=== PATIENT | female | born 1985 | race Two or more races ===

== ENCOUNTER 2017-04-30 13:21 | Inpatient (IN) | payer BC ==
[~2017-04-30] VITALS: Ht 152.4 cm; Wt 54.6 kg
--- NOTE | 2017-04-30 14:08 | NUR ---
RECIEVED TO ROOM VIA WHEELCHAIR FROM ADMISSIONS [ER DIRECT ADMISSION PER ORDER DR MATTA. PIV SITED TO LEFT FORARM 20 GA X 1 STICK
[2017-04-30] MEDS ORDERED: LEVAQUIN500 MG PO (14:32)
[2017-04-30] MEDS ORDERED: MUCINEX600 MG PO (14:32)
[2017-04-30] MEDS ORDERED: VENTOLIN HFA18 GM INH (14:33)
[2017-04-30 16:22] LABS: HEMATOCRIT 31.8 % (36.0-48.0); HEMOGLOBIN 9.8 g/dL (12-16); MCH 20.9 pg (26.0-34.0); MCHC 30.8 g/dL (31.0-37.0); MCV 67.9 fL (80.0-100.0); MEAN PLATELET VOLUME 9.9 fL (7.4-10.4); PLATELET COUNT 305 10x3/uL (130-400); RBC 4.68 10x6/uL (4.00-5.40); RDW 16.1 % (11.5-14.5); WBC 2.6 10x3/uL (4.8-10.8)
[2017-04-30 16:33] VITALS: BP 94/58
[2017-04-30 16:36] LABS: ALBUMIN 2.9 g/dL (3.4-5.0); ALKALINE PHOSPHATASE 69 U/L (46-116); ALT (SGPT) 15 U/L (10-68); BILIRUBIN - TOTAL 0.21 mg/dL (0.2-1.3); CALC OSMOLALITY 276 mosm/kg (275-300); CALCIUM 8.3 mg/dL (8.5-10.1); CARBON DIOXIDE 25.7 mmol/L (21.0-32.0); CHLORIDE - SERUM 103 mmol/L (98-107); CREATININE - SERUM 0.8 mg/dL (0.6-1.3); GLUCOSE 117 mg/dL (74-106); POTASSIUM - SERUM 3.6 mmol/L (3.5-5.1); PROTEIN - SERUM 7.6 g/dL (6.4-8.2); SODIUM 139 mmol/L (136-145); UREA NITROGEN 7 mg/dL (7-18); eGFR NON AFRICAN AMERICAN 87 mL/min (90-120)
[2017-04-30 17:06] LABS: LYMPHOCYTES 19 % (15-50); MONOCYTES 3 % (2-11); NEUTROPHILS 77 % (40-80); PLATELET ESTIMATE NORMAL
--- NOTE | 2017-04-30 17:30 | NUR ---
PT NOTED TO HAVE TEMP OF 101.2 NEW ORDER FOR TYLENOL GIVEN PER ORDER WILL MONITOR FOR EFFECTIVENESS. PT FAMILY AT BEDSIDE.
[2017-04-30 18:16] VITALS: BP 94/58; BMI 21.7
--- NOTE | 2017-04-30 19:00 | NUR ---
PT TEMP 99.1 FAMILY REMAINS AT BEDSIDE.
[2017-04-30 20:00] VITALS: BP 85/51
[2017-04-30 21:45] VITALS: BP 90/60
[2017-05-01] VITALS: BP 90/48
[2017-05-01 03:49] VITALS: BP 97/49
[2017-05-01 05:47] LABS: BASOPHILS 0.4 % (0-2); EOSINOPHILS 0 % (0-7); HEMATOCRIT 29.3 % (36.0-48.0); HEMOGLOBIN 9.2 g/dL (12-16); LYMPHOCYTES 20.4 % (15-50); MCH 21.2 pg (26.0-34.0); MCHC 31.4 g/dL (31.0-37.0); MCV 67.5 fL (80.0-100.0); MEAN PLATELET VOLUME 9.5 fL (7.4-10.4); MONOCYTES 1.7 % (2-11); NEUTROPHILS 77.5 % (40-80); PLATELET COUNT 293 10x3/uL (130-400); RBC 4.34 10x6/uL (4.00-5.40); RDW 16.2 % (11.5-14.5); WBC 2.4 10x3/uL (4.8-10.8)
[2017-05-01 06:00] LABS: ALBUMIN 2.5 g/dL (3.4-5.0); ALKALINE PHOSPHATASE 62 U/L (46-116); ALT (SGPT) 14 U/L (10-68); BILIRUBIN - TOTAL 0.22 mg/dL (0.2-1.3); CALC OSMOLALITY 280 mosm/kg (275-300); CALCIUM 7.8 mg/dL (8.5-10.1); CARBON DIOXIDE 24.3 mmol/L (21.0-32.0); CHLORIDE - SERUM 108 mmol/L (98-107); CREATININE - SERUM 0.8 mg/dL (0.6-1.3); GLUCOSE 108 mg/dL (74-106); POTASSIUM - SERUM 3.7 mmol/L (3.5-5.1); PROTEIN - SERUM 6.7 g/dL (6.4-8.2); SODIUM 142 mmol/L (136-145); eGFR NON AFRICAN AMERICAN 87 mL/min (90-120)
[2017-05-01 06:02] LABS: UREA NITROGEN 5 mg/dL (7-18)
--- NOTE | 2017-05-01 07:45 | NUR ---
PT ASSESSMENT COMPLETE AWAKE AND ALERT ORINETD X 3 LUNGS WITH NOTED DIMINISHED BASES AND CRACKLES NOTED TO RML BSA X 4 QUADS UP AD JOAQUÍN IS ON DAY 5 OF MENSES.
[2017-05-01 09:31] VITALS: BP 91/47
--- NOTE | 2017-05-01 11:08 | NUR ---
DR PRATT IN ROOM AT THIS [facility] SYSTEMS PROGRAMMER TO HAVE BRONCHOSCOPY AT 3PM TODAY PER DR PRATT. PT NPO ALSO NEW ORDER FOR FLUID BOLUS STARTED AT THIS TIME
[2017-05-01 12:12] LABS: BASOPHILS 0 % (0-2); EOSINOPHILS 0 % (0-7); HEMATOCRIT 29.3 % (36.0-48.0); HEMOGLOBIN 9.1 g/dL (12-16); LYMPHOCYTES 23.6 % (15-50); MCH 21.1 pg (26.0-34.0); MCHC 31.1 g/dL (31.0-37.0); MCV 67.8 fL (80.0-100.0); MEAN PLATELET VOLUME 9.2 fL (7.4-10.4); MONOCYTES 2.7 % (2-11); NEUTROPHILS 73.7 % (40-80); PLATELET COUNT 292 10x3/uL (130-400); RBC 4.32 10x6/uL (4.00-5.40); RDW 16.2 % (11.5-14.5); WBC 2.6 10x3/uL (4.8-10.8)
[2017-05-01 12:14] VITALS: BP 100/61
[2017-05-01 12:27] LABS: INR 1.31 (0.85-1.17); PROTIME 16.1 SECONDS (11.6-15.0)
[2017-05-01 12:28] LABS: APTT 33.6 SECONDS (22.8-39.4)
--- NOTE | 2017-05-01 16:00 | NUR ---
PT TO HAVE BRONCHOSCOPY IN ROOM 2240 CONSENTS SIGNED ROOM PREPPED AND PT PREOPPED.
--- NOTE | 2017-05-01 17:00 | NUR ---
PT RESTING WELL WITH NO DISTRES NOTED VOICES NEEDS FAMILY AT SIDE
--- NOTE | 2017-05-01 18:35 | NUR ---
PT HAD A LARGE AMOUNT CLEAR EMESIS WITH TYLENOL PILL VISIBLE THAT WAS JUST PREVIOUSLY ADMINISTERED. ORDER GIVEN FOR IV TYLENOL FOR TEMP AND EVS CALLED TO MOP THE ROOM.
--- NOTE | 2017-05-01 19:00 | NUR ---
PT TEMP 105, THERAPY TECH JOSIE PAGED DR JONES AND DR PRATT, GAVE PT ICE PACKS TO HELP LOWER TEMP, INCREASED FLUIDS. FAMILY WITH PATIENT, BED IN LOW POSITION, CALL LIGHT WITHIN REACH
[2017-05-01 20:00] VITALS: BP 127/87
--- NOTE | 2017-05-01 20:56 | NUR ---
PT SPIKED FEVER OF 104.9 WITH FAMILY AT SIDE HEART RATE 144 SUSTAINED NEW ORDERS OBRTAINED PER DR PRATT FOLLOWED PT GIVEN ICE PK
[2017-05-02] VITALS (9 sets, daily range): BP systolic 92–123; BP diastolic 47–74
--- NOTE | 2017-05-02 03:39 | NUR ---
ASISTED PT TO RESTROOM, PT IS ALERT, VERBALLIZED NO PAIN, UP WITH ONE PERSON ASSIST. BED IN LOW POSITION, CALL LIGHT WITHIN REACH
[2017-05-02 05:59] LABS: BASOPHILS 0 % (0-2); EOSINOPHILS 0 % (0-7); HEMATOCRIT 27.8 % (36.0-48.0); HEMOGLOBIN 8.7 g/dL (12-16); IMMATURE GRANULOCYTES 0.2 % (0-5); LYMPHOCYTES 11.7 % (15-50); MCH 21.3 pg (26.0-34.0); MCHC 31.3 g/dL (31.0-37.0); MEAN PLATELET VOLUME 9.6 fL (7.4-10.4); MONOCYTES 0.7 % (2-11); NEUTROPHILS 87.4 % (40-80); PLATELET COUNT 260 10x3/uL (130-400); RBC 4.09 10x6/uL (4.00-5.40); RDW 16.5 % (11.5-14.5)
[2017-05-02 06:05] LABS: WBC 5.7 10x3/uL (4.8-10.8)
[2017-05-02 06:19] LABS: ALBUMIN 1.9 g/dL (3.4-5.0); ALKALINE PHOSPHATASE 49 U/L (46-116); ALT (SGPT) 14 U/L (10-68); BILIRUBIN - TOTAL 0.34 mg/dL (0.2-1.3); CALC OSMOLALITY 291 mosm/kg (275-300); CARBON DIOXIDE 22.9 mmol/L (21.0-32.0); CREATININE - SERUM 0.7 mg/dL (0.6-1.3); GLUCOSE 114 mg/dL (74-106); POTASSIUM - SERUM 3.6 mmol/L (3.5-5.1); PROTEIN - SERUM 5.6 g/dL (6.4-8.2); SODIUM 148 mmol/L (136-145); UREA NITROGEN 4 mg/dL (7-18); eGFR NON AFRICAN AMERICAN > 90 mL/min (90-120)
[2017-05-02 06:21] LABS: CALCIUM 6.9 mg/dL (8.5-10.1); CHLORIDE - SERUM 116 mmol/L (98-107)
--- NOTE | 2017-05-02 07:58 | NUR ---
PT AOX4 RESP EVEN AND NONLABORED PT DENIES NEEDS AT THIS TIME IV TO RIGHT FOREARM PATENT AND INTACT AT THIS TIME SRX2 BED AT LOWEST SETTING CALL LIGHT WITHIN REACH WILL CONTINUE TO MONITOR
--- NOTE | 2017-05-02 19:29 | NUR ---
PT IS SITTING IN BED WITH UNCONTROLLABLE COUGH, FATHER IN LAW DR. DAVIS HAS ASKED FOR A COUGH SUPPRESSANT. PT C/O ABDOMINAL SORENESS DUE TO COUGH, EXPLAINED TO PT AND FAMILY THAT PT NEEDS TO COUGH UP FLEM AND CLEAR OUT LUNGS PT FATHER IN LAW THEN ASKED ABOUT COUGH EXPECTORANT. PT VERBALIZED FINE JUST SORE FROM COUGHING, NO OTHER SIGNS OF DISTRESS AT THIS TIME. CONTINUE WITH PLAN OF CARE AND MONITORING TEMP. BED IN LOW POSITION, CALL LIGHT WITHIN REACH
[2017-05-03] VITALS (8 sets, daily range): BP systolic 85–127; BP diastolic 56–79
--- NOTE | 2017-05-03 01:00 | NUR ---
IN DROPLET ISOLATION. RESTING WITH EYES CLOSED. RR EVEN U/L. NO S/S OF DISTRESS OR DISCOMFORT. CALL LIGHT IN REACH.
[2017-05-03 06:25] LABS: BASOPHILS 0 % (0-2); EOSINOPHILS 0.1 % (0-7); HEMATOCRIT 26.2 % (36.0-48.0); IMMATURE GRANULOCYTES 0.1 % (0-5); LYMPHOCYTES 11.9 % (15-50); MCH 20.8 pg (26.0-34.0); MCHC 30.5 g/dL (31.0-37.0); MCV 68.1 fL (80.0-100.0); MEAN PLATELET VOLUME 9.9 fL (7.4-10.4); MONOCYTES 1.4 % (2-11); NEUTROPHILS 86.5 % (40-80); PLATELET COUNT 262 10x3/uL (130-400); RBC 3.85 10x6/uL (4.00-5.40); RDW 16.6 % (11.5-14.5); WBC 7.3 10x3/uL (4.8-10.8)
[2017-05-03 06:46] LABS: % SATURATION 4 % (15-55); IRON 8 ug/dl (35-150); TOTAL IRON BIND CAPACITY 173 ug/dl (260-445); UNSAT IRON BIND CAPACITY 165 ug/dl (150-375)
[2017-05-03 06:55] LABS: ALBUMIN 1.9 g/dL (3.4-5.0); ALKALINE PHOSPHATASE 54 U/L (46-116); ALT (SGPT) 13 U/L (10-68); BILIRUBIN - TOTAL 0.32 mg/dL (0.2-1.3); CALC OSMOLALITY 277 mosm/kg (275-300); CALCIUM 7.5 mg/dL (8.5-10.1); CARBON DIOXIDE 24.3 mmol/L (21.0-32.0); CHLORIDE - SERUM 109 mmol/L (98-107); CREATININE - SERUM 0.7 mg/dL (0.6-1.3); FERRITIN 83 ng/mL (3-244); GLUCOSE 131 mg/dL (74-106); PROTEIN - SERUM 5.7 g/dL (6.4-8.2); SODIUM 140 mmol/L (136-145); UREA NITROGEN 3 mg/dL (7-18); eGFR NON AFRICAN AMERICAN > 90 mL/min (90-120)
[2017-05-03 07:01] LABS: POTASSIUM - SERUM 2.9 mmol/L (3.5-5.1)
--- NOTE | 2017-05-03 07:55 | NUR ---
PT AOX4 RESP EVEN AND NONLABORED PT DENIES NEEDS AT THIS TIME SRX2 BED AT LOWEST SETTING CALL LIGHT WITHIN REACH WILL CONTINUE TO MONITOR IV TO RIGHT FOREARM PATENT AND INTACT AT THIS TIME
[2017-05-03 14:08] LABS: ACID FAST SMEAR Negative (()); AFB SPECIMEN PROCESSING Concentration (())
--- NOTE | 2017-05-03 20:09 | NUR ---
REC'D SITTING UP IN CHAIR IN ROOM AWAKE AND ALERT. RESP EVEN AND UNLABORED WITH NO DISTRESS NOTED. CAN VOICE NEEDS AND WANTS. DENIES ANY PAIN OR DISCOMFORT AT THIS TIME. ASSESSMENT COMPLETED. C/L IN REACH AT BEDSIDE.
[2017-05-04] VITALS: BP 137/98
[2017-05-04 04:00] VITALS: BP 96/56
--- NOTE | 2017-05-04 04:18 | NUR ---
Patient resting quietly, eyes closed, deemed to be sleeping. IV of NS infusing @100ml/hr and Zofran infusing @4ml/hr. Continues to be on Airborne Isolation. No signs of discomfort at this time, respirations unlabored.
[2017-05-04 05:34] LABS: BASOPHILS 0 % (0-2); EOSINOPHILS 0.2 % (0-7); HEMATOCRIT 26.1 % (36.0-48.0); IMMATURE GRANULOCYTES 0.2 % (0-5); MCH 20.8 pg (26.0-34.0); MCHC 30.7 g/dL (31.0-37.0); MCV 67.8 fL (80.0-100.0); MONOCYTES 1.6 % (2-11); PLATELET COUNT 278 10x3/uL (130-400); RBC 3.85 10x6/uL (4.00-5.40); RDW 16.8 % (11.5-14.5); WBC 5.5 10x3/uL (4.8-10.8)
[2017-05-04 05:49] LABS: ALBUMIN 2.1 g/dL (3.4-5.0); ALKALINE PHOSPHATASE 60 U/L (46-116); ALT (SGPT) 12 U/L (10-68); BILIRUBIN - TOTAL 0.31 mg/dL (0.2-1.3); CALC OSMOLALITY 275 mosm/kg (275-300); CALCIUM 7.7 mg/dL (8.5-10.1); CARBON DIOXIDE 23.7 mmol/L (21.0-32.0); CHLORIDE - SERUM 108 mmol/L (98-107); CREATININE - SERUM 0.7 mg/dL (0.6-1.3); GLUCOSE 100 mg/dL (74-106); SODIUM 140 mmol/L (136-145); UREA NITROGEN 3 mg/dL (7-18); eGFR NON AFRICAN AMERICAN > 90 mL/min (90-120)
[2017-05-04 05:50] LABS: POTASSIUM - SERUM 3.5 mmol/L (3.5-5.1)
[2017-05-04 10:16] VITALS: BP 129/72
[2017-05-04 12:09] VITALS: BP 128/70
--- NOTE | 2017-05-04 14:02 | NUR ---
ATTEMPTED TO FLUSH PT IV AFTER SHOWER TO ENSURE PATENCY. PT COMPLAINED OF BURNING AND PAIN WHEN ATTEMPTED TO DO SO. BIPIN CORTES IV ACCESS NURSE, CALLED TO PLACE MIDLINE.
[2017-05-04 15:57] VITALS: BP 129/85
[2017-05-04 19:00] VITALS: BP 106/69
--- NOTE | 2017-05-04 21:55 | NUR ---
PT SEEN EARILER THIS SHIFT. NO COMPLAINTS AT PRESENT. STILL IN DROPLET ISOLATION. LEFT MIDLINE PATENT. STATES NO NAUSEA. HOPING FOR DISCHARGE SOON. CALL LIGHT IN REACH
[2017-05-05] VITALS: BP 107/63
[2017-05-05 04:00] VITALS: BP 120/77
--- NOTE | 2017-05-05 04:00 | NUR ---
PATIENT RESTING QUIETLY WITH EYES CLOSED. NO SIGNS OF DISTRESS NOTED. BED IN LOWEST POSITION, CALL LIGHT IN REACH. BED RAILS UP X'S 2.
--- NOTE | 2017-05-05 06:05 | NUR ---
PT HAS RESTED THIS SHIFT. REMAINS IN AIRBORNE ISOLATION. NO FAMILY AT BEDSIDE THIS NIGHT. CALL LIGHT IN REACH
[2017-05-05 06:20] LABS: BASOPHILS 0.2 % (0-2); EOSINOPHILS 0.4 % (0-7); HEMATOCRIT 28.9 % (36.0-48.0); HEMOGLOBIN 8.9 g/dL (12-16); IMMATURE GRANULOCYTES 0.4 % (0-5); LYMPHOCYTES 14.7 % (15-50); MCH 20.7 pg (26.0-34.0); MCHC 30.8 g/dL (31.0-37.0); MCV 67.4 fL (80.0-100.0); MEAN PLATELET VOLUME 9.6 fL (7.4-10.4); MONOCYTES 2.8 % (2-11); NEUTROPHILS 81.5 % (40-80); PLATELET COUNT 291 10x3/uL (130-400); RBC 4.29 10x6/uL (4.00-5.40); RDW 16.7 % (11.5-14.5); WBC 4.7 10x3/uL (4.8-10.8)
[2017-05-05 06:38] LABS: ALBUMIN 2.2 g/dL (3.4-5.0); ALKALINE PHOSPHATASE 64 U/L (46-116); ALT (SGPT) 14 U/L (10-68); BILIRUBIN - TOTAL 0.36 mg/dL (0.2-1.3); CALC OSMOLALITY 279 mosm/kg (275-300); CALCIUM 7.5 mg/dL (8.5-10.1); CARBON DIOXIDE 23.2 mmol/L (21.0-32.0); CHLORIDE - SERUM 107 mmol/L (98-107); CREATININE - SERUM 0.7 mg/dL (0.6-1.3); GLUCOSE 102 mg/dL (74-106); POTASSIUM - SERUM 3.2 mmol/L (3.5-5.1); PROTEIN - SERUM 6.3 g/dL (6.4-8.2); SODIUM 142 mmol/L (136-145); eGFR NON AFRICAN AMERICAN > 90 mL/min (90-120)
[2017-05-05 06:39] LABS: UREA NITROGEN 5 mg/dL (7-18)
[2017-05-05 08:24] VITALS: BP 118/63
[2017-05-05 09:15] LABS: FOLATE (FOLIC ACID) - SERUM 13.3 ng/mL (>3.0)
--- NOTE | 2017-05-05 12:30 | NUR ---
RESTING QUIETLY WITH FAMILY AT BEDSIDE. NO NEEDS AT PRESENT. BED LOW CL IN REACH.
[2017-05-05 12:40] VITALS: BP 120/63
[2017-05-05 14:00] VITALS: Ht 152.4 cm; Wt 54.6 kg
[2017-05-05 16:39] VITALS: BP 100/70
[2017-05-05 19:00] VITALS: BP 118/31
--- NOTE | 2017-05-05 19:50 | NUR ---
FAMILY/ FRIENDS VISIT.
--- NOTE | 2017-05-06 03:46 | NUR ---
REST QUIETLY IN BED, EYE CLOSE, BED LOW, CALL LIGHT WITHIN REACH.
[2017-05-06 04:00] VITALS: BP 111/75
[2017-05-06 08:21] VITALS: BP 117/71
--- NOTE | 2017-05-06 09:51 | NUR ---
Patient Name: EDMUND DAVIS Admission Status: Elective Accout number: [id number] Admission Date: 04-30-2017 : 1985 Admission Diagnosis:LOBAR PNEUMONIA, UNSPECIFIED ORGANISM Attending: MANOJ Current LOS: 6 Anticipated DC Date: 05-08-2017 Planned Disposition: Home Primary Insurance: [employer] PPO Discharge Planning Comments: CM MET WITH PATIENT REGARDING D/C NEEDS AND PLANS. PATIENT STATED SHE LIVES WITH HER SPOUSE (RUSSELL) AND HE WILL DRIVE HER HOME AT DISCHARGE. PATIENT HAS 3 STEPS TO ENTER HOME AND 18 STAIRS W/RAILING INSIDE. PATIENT IS INDEPENDENT WITH HER CARE AND HAS NO DME AT HOME. PATIENTS PCP IS DR. MATTA AND PHARMACY IS [facility] [address]. PATIENT DID NOT WANT HOME HEALTH. CM WILL CONTINUE TO FOLLOW PATIENT WITH D/C NEEDS AND PLANS. PCP DR. PAXTON [facility] [address] (PHARMACY) [phone] RUSSELL (SPOUSE) [phone] OR [phone] Sleeve Setter Safety Stitch: Jenny Feliz Is the patient Alert and Oriented? Yes 0 * How many steps to enter\exit or inside your home? 18 W/RAIL 0 * PCP DR. MATTA 0 * [facility] [address] [facility] * Preadmission Environment Home with Family 0 * ADLs Independent 0 * Equipment None 0 * List name and contact numbers for known caregivers / representatives who currently or will assist patient after discharge: RUSSELL (SPOUSE) [phone] OR [phone] 0 * Community resources currently utilized None 0 * Additional services required to return to the preadmission environment? Yes 0 * Can the patient safely return to the preadmission environment? Yes 0 * Has this patient been hospitalized within the prior 30 days at any hospital? No 0 Grand Total: 0
[2017-05-06 10:48] LABS: CREATININE - SERUM 0.6 mg/dL (0.6-1.3)
[2017-05-06 11:18] LABS: FUNGUS STAIN Final report (())
[2017-05-06 12:37] VITALS: BP 102/60
--- NOTE | 2017-05-06 13:20 | NUR ---
RESPIRATIONS EVEN AND NON LABORED. DENIES NEEDS AT PRESENT TIME. CALL LIGHT IN REACH, WILL CONTINUE WITH PLAN OF CARE.
[2017-05-06 15:54] VITALS: BP 104/72
[2017-05-06 16:13] LABS: LEGIONELLA ANTIGEN - URINE Negative (Negative)
[2017-05-06 19:00] VITALS: BP 175/65
[2017-05-06 19:49] LABS: BASOPHILS 0.2 % (0-2); EOSINOPHILS 1.6 % (0-7); HEMATOCRIT 28.2 % (36.0-48.0); HEMOGLOBIN 8.9 g/dL (12-16); LYMPHOCYTES 13.5 % (15-50); MCH 21.1 pg (26.0-34.0); MCHC 31.6 g/dL (31.0-37.0); MEAN PLATELET VOLUME 9.3 fL (7.4-10.4); MONOCYTES 3.7 % (2-11); PLATELET COUNT 301 10x3/uL (130-400); RBC 4.21 10x6/uL (4.00-5.40); RDW 16.7 % (11.5-14.5); WBC 4.9 10x3/uL (4.8-10.8)
[2017-05-06 20:11] LABS: ALBUMIN 2.4 g/dL (3.4-5.0); ALKALINE PHOSPHATASE 66 U/L (46-116); ALT (SGPT) 14 U/L (10-68); CALC OSMOLALITY 277 mosm/kg (275-300); CALCIUM 7.9 mg/dL (8.5-10.1); CARBON DIOXIDE 26.8 mmol/L (21.0-32.0); CHLORIDE - SERUM 104 mmol/L (98-107); CREATININE - SERUM 0.7 mg/dL (0.6-1.3); GLUCOSE 100 mg/dL (74-106); PROTEIN - SERUM 6.4 g/dL (6.4-8.2); SODIUM 141 mmol/L (136-145); UREA NITROGEN 4 mg/dL (7-18); eGFR NON AFRICAN AMERICAN > 90 mL/min (90-120)
[2017-05-06 20:14] LABS: POTASSIUM - SERUM 3.3 mmol/L (3.5-5.1)
--- NOTE | 2017-05-06 23:11 | NUR ---
REC'D SITTING UP IN BED. ALERT AND ORIENTED X4. DENIED PAIN AT THIS TIME. IS SOB AND VOMITING. MORTGAGE BANKER REPORTED TEMP OF 101.6, AND 30 MIN LATER I CHECKED AND IT HAD CLIMBED TO 102.9. GAVE RECTAL SUPP OF TYLENOL, AROUND 1999. RECHECKED TEMP AND IS NOW AT 99.1. WILL CONT TO MONITOR. VOMITING HAS STOPPED AND WAS ABLE TO KEEP WATER AND A POPCSILE DOWN. DENIED FURTHER NEEDS AT THIS TIME. INSTRUCTED TO CALL IF NEEDED ANYTHING. VERBALIZED UNDERSTANDING. FAMILY IS AT BEDSIDE. ALSO A DR. DAVIS CALLED AND WAS WANTING TO SPEAK WITH DR. RODRIGUEZ. CALLED VINAYAK GONZALEZ AND INSTRUCTED ME TO CALL DR. RODRIGUEZ AND LET IT BE UP TO HIS DISCRETION. CALLED ME BACK AND STATED "PLACE NUMBER ON THE CHART AND I WILL CALL HIM TOMORROW WHEN I GET IN, IM NOT CALLING HIM EHSAN". THAT WAS AROUND 2100.
[2017-05-07 04:00] VITALS: BP 104/65
[2017-05-07 05:53] LABS: BASOPHILS 0.3 % (0-2); EOSINOPHILS 0.6 % (0-7); HEMATOCRIT 25.3 % (36.0-48.0); HEMOGLOBIN 7.9 g/dL (12-16); IMMATURE GRANULOCYTES 0.6 % (0-5); LYMPHOCYTES 16.9 % (15-50); MCH 20.7 pg (26.0-34.0); MCHC 31.2 g/dL (31.0-37.0); MCV 66.2 fL (80.0-100.0); MEAN PLATELET VOLUME 9.5 fL (7.4-10.4); NEUTROPHILS 74.6 % (40-80); PLATELET COUNT 265 10x3/uL (130-400); RBC 3.82 10x6/uL (4.00-5.40); RDW 16.6 % (11.5-14.5)
[2017-05-07 06:14] LABS: WBC 3.1 10x3/uL (4.8-10.8)
[2017-05-07 06:39] LABS: ALBUMIN 1.9 g/dL (3.4-5.0); ALKALINE PHOSPHATASE 56 U/L (46-116); ALT (SGPT) 13 U/L (10-68); BILIRUBIN - TOTAL 0.33 mg/dL (0.2-1.3); CALC OSMOLALITY 276 mosm/kg (275-300); CALCIUM 7.3 mg/dL (8.5-10.1); CARBON DIOXIDE 26.4 mmol/L (21.0-32.0); CHLORIDE - SERUM 104 mmol/L (98-107); CREATININE - SERUM 0.6 mg/dL (0.6-1.3); GLUCOSE 110 mg/dL (74-106); MAGNESIUM - SERUM 1.9 mg/dL (1.8-2.4); PHOSPHOROUS 3.8 mg/dL (2.5-4.9); PROTEIN - SERUM 5.7 g/dL (6.4-8.2); SODIUM 140 mmol/L (136-145); UREA NITROGEN 5 mg/dL (7-18); eGFR NON AFRICAN AMERICAN > 90 mL/min (90-120)
[2017-05-07 07:59] VITALS: BP 114/68
--- NOTE | 2017-05-07 10:48 | NUR ---
PT SEEN EARILER THIS AM. NO COMPLAINTS OF PAIN OR NAUSEA AT PRESENT WHEN ASSESSED. DOES HAVE A COUGH OCCASIONAL THAT PT STATES MAKES HER NAUSEAETED. NO FEVER AT PRESENT. REMAINS IN AIRBORNE DROPLET. CALL LIGHT IN REACH
[2017-05-07 12:21] VITALS: BP 113/75
--- NOTE | 2017-05-07 13:21 | NUR ---
TEMP AT 1210 101.8. TYLENOL 650MG PO GIVEN. TEMP NOW 102. RESTING QUIETLY
[2017-05-07 14:21] LABS: ANA REFLEX - ANTICHROMATIN ABS <0.2 AI (0.0-0.9); ANA REFLEX - CENTROMERE B ABS <0.2 AI (0.0-0.9); ANA REFLEX - DBL STRANDED DNA 1 IU/mL (0-9); ANA REFLEX - DIRECT Positive (Negative); ANA REFLEX - JO-1 AB 0.9 AI (0.0-0.9); ANA REFLEX - RNP ANTIBODIES 0.7 AI (0.0-0.9); ANA REFLEX - SCL-70 <0.2 AI (0.0-0.9); ANA REFLEX - SJOGRENS AB SSA >8.0 AI (0.0-0.9); ANA REFLEX - SJOGRENS AB SSB <0.2 AI (0.0-0.9); ANA REFLEX - SMITH AB 0.5 AI (0.0-0.9)
[2017-05-07 15:21] LABS: CRYPTOCOCCUS AG - SERUM Negative (Negative)
--- NOTE | 2017-05-07 15:24 | NUR ---
NUTRITION MONITORING & EVAL CHART REVIEWED. CALORIE COUNT TO START. ADDED ENSURE TO VEGETARIAN FULL LIQUID DIET. RD FOLLOWING
--- NOTE | 2017-05-07 15:43 | NUR ---
PT TEMP TAKEN AT 1445 AND WAS 99.5 ORALLY. STATES SHE FEELS BETTER
[2017-05-07 15:57] VITALS: BP 104/68
--- NOTE | 2017-05-07 20:00 | NUR ---
ASSISTED PATIENT TO THE RESTROOM AND BACK TO BED. PATIENT DENIES OTHER NEEDS AT THIS TIME. BED IN LOWEST POSITION AND CALL LIGHT WITHIN REACH. ENCOURAGED THE PATIENT TO CALL IF SHE HAS FURTHER NEEDS.
[2017-05-07 22:49] VITALS: BP 132/72
[2017-05-08] VITALS (19 sets, daily range): BP systolic 79–119; BP diastolic 53–89
[2017-05-08 07:16] LABS: BASOPHILS 0 % (0-2); HEMATOCRIT 24.3 % (36.0-48.0); HEMOGLOBIN 7.8 g/dL (12-16); IMMATURE GRANULOCYTES 0.7 % (0-5); LYMPHOCYTES 27.8 % (15-50); MCHC 32.1 g/dL (31.0-37.0); MCV 65.5 fL (80.0-100.0); MEAN PLATELET VOLUME 9.3 fL (7.4-10.4); MONOCYTES 5.2 % (2-11); NEUTROPHILS 65.3 % (40-80); PLATELET COUNT 297 10x3/uL (130-400); RBC 3.71 10x6/uL (4.00-5.40); RDW 16.2 % (11.5-14.5); WBC 3.1 10x3/uL (4.8-10.8)
[2017-05-08 07:45] LABS: ALBUMIN 2.1 g/dL (3.4-5.0); ALKALINE PHOSPHATASE 57 U/L (46-116); ALT (SGPT) 13 U/L (10-68); BILIRUBIN - TOTAL 0.33 mg/dL (0.2-1.3); CALC OSMOLALITY 273 mosm/kg (275-300); CALCIUM 7.8 mg/dL (8.5-10.1); CARBON DIOXIDE 24.8 mmol/L (21.0-32.0); CHLORIDE - SERUM 104 mmol/L (98-107); CREATININE - SERUM 0.6 mg/dL (0.6-1.3); GLUCOSE 117 mg/dL (74-106); LDH 311 U/L (81-234); MAGNESIUM - SERUM 1.8 mg/dL (1.8-2.4); PHOSPHOROUS 4.2 mg/dL (2.5-4.9); PROTEIN - SERUM 6.3 g/dL (6.4-8.2); SODIUM 138 mmol/L (136-145); UREA NITROGEN 5 mg/dL (7-18); eGFR NON AFRICAN AMERICAN > 90 mL/min (90-120)
[2017-05-08 07:48] LABS: POTASSIUM - SERUM 2.5 mmol/L (3.5-5.1)
[2017-05-08 07:53] LABS: COMPLEMENT C4 17.5 mg/dL (17.4-52.2)
--- NOTE | 2017-05-08 08:19 | NUR ---
PT SEEN AND ASSESSED. NO PAIN OR VOMITING LAST SHIFT. NO FEVER EITHER. UP IN ROOM. STATES SHE FEELS GOOD THIS AM. CALL LIGHT IN REACH
[2017-05-08 14:21] LABS: HISTOPLASMA GAL MANNAN AG SER 0.16 ng/mL (0.00-0.49)
--- NOTE | 2017-05-08 15:05 | NUR ---
PT RESTING QUIETLY WITHOUT NAUSEA OR COUGHING IN BETWEEN TAKING VITAL SIGNS FOR BLOOD TRANSFUSION. TOLERATING WITHOUT SOB OR ITCHING. CALL LIGHT IN REACH
--- NOTE | 2017-05-08 22:01 | NUR ---
BEFORE ADMINISTERING MEDICATIONS PATIENT DENIED NAUSEA. PATIENT ATTEMPTED TO SWALLOW K-DUR TAB MULTIPLE TIMES BUT KEPT GAGGING. PATIENT STATED IF I SWALLOW IT I WILL THROW IT UP. TOLD HER NOT TO KEEP TRYING. CALLED PHARMACY SPOKE WITH FRANCISCO, ASKED HIM TO CHANGE IT TO 2- 10MEQ CAPSULES. WHEN I CAME BACK TO THE ROOM, I WASTED THE 20MEQ K-DUR TAB IN THE SHARPS CONTAINER, PATIENT STATED SHE FEELS SICK. TOLD PATIENT TO WAIT ON THE POTASSIUM 40MEQ LIQUID THAT IS ALREADY MIXED IN A CUP OF APPLE JUICE UNTIL SHE FEELS BETTER PATIENT AGREED THEN STARTED TO VOMIT IN A EMESIS BAG, GAVE PATIENT A COLD WET WASH CLOTH.
--- NOTE | 2017-05-08 23:30 | NUR ---
PATIENT STATED SHE STILL FEELS NAUSEOUS.
[2017-05-09] VITALS: BP 107/63
--- NOTE | 2017-05-09 00:06 | NUR ---
RESTING QUIETLY WITH EYES CLOSED
[2017-05-09 04:00] VITALS: BP 121/67
[2017-05-09 07:09] LABS: BASOPHILS 0 % (0-2); EOSINOPHILS 2.6 % (0-7); HEMATOCRIT 33.3 % (36.0-48.0); HEMOGLOBIN 10.9 g/dL (12-16); IMMATURE GRANULOCYTES 0.7 % (0-5); LYMPHOCYTES 25.2 % (15-50); MCH 22.5 pg (26.0-34.0); MCHC 32.7 g/dL (31.0-37.0); MCV 68.8 fL (80.0-100.0); MEAN PLATELET VOLUME 9.3 fL (7.4-10.4); MONOCYTES 3.7 % (2-11); NEUTROPHILS 67.8 % (40-80); PLATELET COUNT 271 10x3/uL (130-400); RBC 4.84 10x6/uL (4.00-5.40); RDW 18.1 % (11.5-14.5); WBC 2.7 10x3/uL (4.8-10.8)
[2017-05-09 07:25] LABS: ALBUMIN 2.2 g/dL (3.4-5.0); ALKALINE PHOSPHATASE 70 U/L (46-116); ALT (SGPT) 14 U/L (10-68); BILIRUBIN - TOTAL 0.46 mg/dL (0.2-1.3); C-REACTIVE PROTEIN 2.3 mg/dL (0.0-0.9); CALC OSMOLALITY 263 mosm/kg (275-300); CALCIUM 7.8 mg/dL (8.5-10.1); CARBON DIOXIDE 25.2 mmol/L (21.0-32.0); CHLORIDE - SERUM 103 mmol/L (98-107); CREATININE - SERUM 0.7 mg/dL (0.6-1.3); GLUCOSE 105 mg/dL (74-106); PROTEIN - SERUM 6.6 g/dL (6.4-8.2); SODIUM 132 mmol/L (136-145); UREA NITROGEN 9 mg/dL (7-18); eGFR NON AFRICAN AMERICAN > 90 mL/min (90-120)
[2017-05-09 08:13] LABS: ERYTHROCYTE SEDIMENTATION RATE 37 mm/hr (0-20)
[2017-05-09 08:15] LABS: IMMUNOGLOBULIN E 58 IU/mL (0-100)
--- NOTE | 2017-05-09 08:15 | NUR ---
PT RESTING IN BED WITH EYES OPEN CALL LIGHT IN REACH NO PROBLEMS WILL MONITER
[2017-05-09 08:42] VITALS: BP 95/54
--- NOTE | 2017-05-09 11:00 | NUR ---
PROVIDED PT WITH FRESH ICE WATER AT THIS TIME. RESPIRATIONS EVEN AND NON LABORED. CALL LIGHT IN REACH, WILL CONTINUE WITH PLAN OF CARE.
--- NOTE | 2017-05-09 11:00 | NUR ---
Nutrition Follow Up: Calorie Count: Breakfast 05/08/17:175 kcal6.5 g protein Lunch 05/08/17: 0 kcal 0 g protein Dinner05/08/17:Not recorded Breakfast 05/09/17:40 kcal1.5 g protein Total Kcal and Protein in 24 hours: 215 kcal8 g protein Pt is not meeting est nutritional needs with current po intake. Rec consider an appetite stimulant. Will continue to provide selective menus and honor food preferences. RD following.
[2017-05-09 12:19] VITALS: BP 104/47
[2017-05-09 13:11] LABS: BASOS 0 % (()); CD4:8 - % CD4 POS. LYMPH 48.7 % (30.8-58.5); CD4:8 - ABS CD8 SUPPRESSOR 200 /uL (109-897); CD4:8 - ABSOLUTE CD4 HELPER 390 /uL (359-1519); CD4:8 - CD4/CD8 RATIO 1.95 (0.92-3.72); EOS 1 % (()); HEMATOCRIT 24.7 % (34.0-46.6); HEMOGLOBIN 7.5 g/dL (11.1-15.9); LYMPHS 28 % (()); LYMPHS (ABSOLUTE) 0.8 x10E3/uL (0.7-3.1); MCH 20.1 pg (26.6-33.0); MCHC 30.4 g/dL (31.5-35.7); MCV 66 fL (79-97); MONOCYTES 4 % (()); MONOCYTES (ABSOLUTE) 0.1 x10E3/uL (0.1-0.9); NEUTROPHILS 66 % (()); NEUTROPHILS (ABSOLUTE) 1.9 x10E3/uL (1.4-7.0); PLATELETS 355 x10E3/uL (150-379); RBC 3.74 x10E6/uL (3.77-5.28); RDW 17.2 % (12.3-15.4); WBC 2.9 x10E3/uL (3.4-10.8)
[2017-05-09 16:28] VITALS: BP 108/74
--- NOTE | 2017-05-09 17:35 | NUR ---
PT RESTING IN BED WITH EYES OPEN CALL LIGHT IN REACH WILL MONITER
--- NOTE | 2017-05-09 19:42 | NUR ---
PATIENT RESTING IN BED AND DENIES NEEDS AT THIS TIME. BED IN LOWEST POSITION AND CALL LIGHT WITHIN REACH. ENCOURAGED THE PATIENT TO CALL IF SHE HAS NEEDS.
[2017-05-09 20:00] VITALS: BP 105/70; BP 117/55
--- NOTE | 2017-05-09 21:23 | NUR ---
101.4 TEMP, ADMINISTERED TYLENOL
[2017-05-10] VITALS: BP 96/68
[2017-05-10 04:00] VITALS: BP 94/68
[2017-05-10 06:18] LABS: BASOPHILS 0 % (0-2); EOSINOPHILS 0.7 % (0-7); HEMATOCRIT 33.6 % (36.0-48.0); HEMOGLOBIN 10.7 g/dL (12-16); IMMATURE GRANULOCYTES 0.7 % (0-5); LYMPHOCYTES 29.5 % (15-50); MCH 22.1 pg (26.0-34.0); MCHC 31.8 g/dL (31.0-37.0); MCV 69.4 fL (80.0-100.0); MEAN PLATELET VOLUME 9.3 fL (7.4-10.4); NEUTROPHILS 64.1 % (40-80); PLATELET COUNT 291 10x3/uL (130-400); RBC 4.84 10x6/uL (4.00-5.40); RDW 18.5 % (11.5-14.5); WBC 2.8 10x3/uL (4.8-10.8)
[2017-05-10 06:45] LABS: ALBUMIN 2.2 g/dL (3.4-5.0); ALKALINE PHOSPHATASE 69 U/L (46-116); ALT (SGPT) 14 U/L (10-68); CALC OSMOLALITY 273 mosm/kg (275-300); CARBON DIOXIDE 25.7 mmol/L (21.0-32.0); CHLORIDE - SERUM 104 mmol/L (98-107); CREATININE - SERUM 0.7 mg/dL (0.6-1.3); GLUCOSE 106 mg/dL (74-106); POTASSIUM - SERUM 3.1 mmol/L (3.5-5.1); PROTEIN - SERUM 6.3 g/dL (6.4-8.2); SODIUM 138 mmol/L (136-145); UREA NITROGEN 8 mg/dL (7-18); eGFR NON AFRICAN AMERICAN > 90 mL/min (90-120)
--- NOTE | 2017-05-10 07:00 | NUR ---
PT REC'D FROM BIPIN WALKER. RESTING IN BED WATCHING TV. AAOX4. NO COMPLAINTS OF PAIN. LUNG SOUNDS DIMINISHED TO BILAT LL, OTHERWISE CLEAR TO OTHER LOBES. REGULAR HEART RATE AND RHYTHM. DRESSING TO MIDLINE IN L UPPER ARM CDI. PIV TO L HAND FREE OF REDNESS AND SWELLING. NO COUGH PRESENT AT THIS TIME. PT DISCONNECTED FROM IV LINES PER REQUEST TO SHOWER. IV SITES WRAPPED AND FRESH TOWELS PROVIDED. BED LOW, CALL LIGHT IN REACH, DENIES NEEDS. CPOC.
--- NOTE | 2017-05-10 08:50 | NUR ---
MORNING MEDS PASSED AT THIS TIME. REFUSED PO POTASSIUM CAPSULES. STATES SHE JUST THROWS THEM BACK UP IMMEDIATELY. WILL ATTEMPT TO ADMINSISTER LIQUID PO POTASSIUM. IV TUBING CHANGED. COMPLETE LINEN CHANGE PROVIDED WELL. RECONNECTED TO IV TUBING. BED LOW, CALL LIGHT IN REACH, DENIES NEEDS. CPOC.
--- NOTE | 2017-05-10 10:25 | NUR ---
PT IN BED, GETTING A UPDRAFT, PT DENIES ANY NEEDS AT THIS TIME. RESP EVEN AND UNLABORED, CALL LIGHT IN REACH, NAD NOTED, WILL CONTINUE TO MONITOR.
--- NOTE | 2017-05-10 10:30 | NUR ---
LIQUID PO KCL ADMINISTERED DUE TO LOW K AND PT REFUSAL TO TAKE PO CAPSULE K. WILL ENTER REDRAW ONCE PT HAS FINISHED MEDICATION.
[2017-05-10 12:31] VITALS: BP 100/62
--- NOTE | 2017-05-10 14:11 | NUR ---
RESTING IN BED WATCHING TV. NO COMPLAINTS AND DENIES NEEDS. BED LOW, CALL LIGHT IN REACH, DENIES NEEDS. CPOC.
--- NOTE | 2017-05-10 15:10 | NUR ---
SCHEDULED MEDICATION ADMINISTERED AT THIS TIME. FAMILY AND FRIENDS AT BEDSIDE. UPDATE PROVIDED AND QUESTIONS ANSWERED. BED LOW, CALL LIGHT IN REACH, DENIES NEEDS. CPOC.
[2017-05-10 16:33] VITALS: BP 107/48
--- NOTE | 2017-05-10 18:25 | NUR ---
PT STATED, "I FEEL LIKE I HAVE FEVER. CAN YOU CHECK?" CURRENT ORAL TEMP 101.3. PRN MORTIN ADMINISTERED. WILL REASSESS.
[2017-05-10 20:00] VITALS: BP 109/65
[2017-05-11] VITALS: BP 104/60
--- NOTE | 2017-05-11 02:00 | NUR ---
PT IN BED WITH NO DISTRESS. RESPIRATIONS EVEN AND UNLABORED. SIDE RAILS X 2. BED IS LOW. CALL LIGHT IN REACH.
[2017-05-11 04:00] VITALS: BP 113/73
[2017-05-11 05:57] LABS: BASOPHILS 0 % (0-2); EOSINOPHILS 1.5 % (0-7); HEMATOCRIT 35.6 % (36.0-48.0); HEMOGLOBIN 11.8 g/dL (12-16); IMMATURE GRANULOCYTES 0.9 % (0-5); MCH 23.3 pg (26.0-34.0); MCHC 33.1 g/dL (31.0-37.0); MCV 70.2 fL (80.0-100.0); MONOCYTES 3.7 % (2-11); NEUTROPHILS 75.9 % (40-80); PLATELET COUNT 277 10x3/uL (130-400); RBC 5.07 10x6/uL (4.00-5.40); RDW 18.9 % (11.5-14.5); WBC 3.2 10x3/uL (4.8-10.8)
[2017-05-11 06:11] LABS: ALBUMIN 2.3 g/dL (3.4-5.0); ALKALINE PHOSPHATASE 76 U/L (46-116); ALT (SGPT) 15 U/L (10-68); BILIRUBIN - TOTAL 0.48 mg/dL (0.2-1.3); CALC OSMOLALITY 275 mosm/kg (275-300); CALCIUM 7.8 mg/dL (8.5-10.1); CARBON DIOXIDE 26.5 mmol/L (21.0-32.0); CHLORIDE - SERUM 105 mmol/L (98-107); CREATININE - SERUM 0.7 mg/dL (0.6-1.3); GLUCOSE 105 mg/dL (74-106); MAGNESIUM - SERUM 2.1 mg/dL (1.8-2.4); PHOSPHOROUS 4.3 mg/dL (2.5-4.9); POTASSIUM - SERUM 3.3 mmol/L (3.5-5.1); PROTEIN - SERUM 6.8 g/dL (6.4-8.2); SODIUM 139 mmol/L (136-145); UREA NITROGEN 8 mg/dL (7-18); eGFR NON AFRICAN AMERICAN > 90 mL/min (90-120)
--- NOTE | 2017-05-11 07:40 | NUR ---
PATIENT RESTING QUIETLY WITH HER EYES CLOSED. NO S/S OF DISTRESS NOTED. PATIENT'S CALL LIGHT IS WITHIN REACH. WILL MONITOR PATIENT.
--- NOTE | 2017-05-11 08:58 | NUR ---
CALORIE COUNT 05/09/17 KCALGM PROTEIN BREAKFASTNOT RECORDED [id number] FOLLOWING
--- NOTE | 2017-05-11 09:01 | NUR ---
CALORIE COUNT05/10/17 KCALGM PROTEIN [id number] FOLLOWING
[2017-05-11 09:13] VITALS: BP 104/70
[2017-05-11 12:11] LABS: CRYPTOCOCCUS AG - SERUM Negative (Negative)
--- NOTE | 2017-05-11 12:49 | NUR ---
PATIENT RESTING IN THE BED. SCHEDULED AMBISOME IVPB STARTED. PATIENT'S [id number] AT HER BEDSIDE. PATIENT DENIES ANY NEEDS AT PRESENT TIME. CALL LIGHT IN PATIENT'S REACH. WILL MONITOR.
[2017-05-11 13:03] VITALS: BP 112/65
[2017-05-11 13:12] LABS: HAPTOGLOBIN 341 mg/dL (34-200); IMMUNOGLOBULIN A 324 mg/dL (87-352); IMMUNOGLOBULIN G 1345 mg/dL (700-1600); IMMUNOGLOBULIN M 114 mg/dL (26-217)
[2017-05-11 14:14] LABS: FUNGUS MYCOLOGY CULTURE Preliminary report (())
[2017-05-11 20:00] VITALS: BP 106/65
[2017-05-11 22:06] LABS: ERYTHROCYTE SEDIMENTATION RATE 29 mm/hr (0-20)
[2017-05-11 22:07] LABS: IMMUNOGLOBULIN D 1.79 mg/dL (<14.11)
[2017-05-12] VITALS: BP 83/51
[2017-05-12 04:03] VITALS: BP 98/56
[2017-05-12 05:51] LABS: HEMATOCRIT 32.8 % (36.0-48.0); HEMOGLOBIN 10.4 g/dL (12-16); MCH 22.3 pg (26.0-34.0); MCHC 31.7 g/dL (31.0-37.0); MCV 70.4 fL (80.0-100.0); MEAN PLATELET VOLUME 9.3 fL (7.4-10.4); PLATELET COUNT 260 10x3/uL (130-400); RBC 4.66 10x6/uL (4.00-5.40); RDW 18.9 % (11.5-14.5); WBC 2.7 10x3/uL (4.8-10.8)
[2017-05-12 06:11] LABS: ALBUMIN 2.1 g/dL (3.4-5.0); ALKALINE PHOSPHATASE 71 U/L (46-116); ALT (SGPT) 13 U/L (10-68); CALC OSMOLALITY 275 mosm/kg (275-300); CALCIUM 7.7 mg/dL (8.5-10.1); CARBON DIOXIDE 25.5 mmol/L (21.0-32.0); CHLORIDE - SERUM 105 mmol/L (98-107); CREATININE - SERUM 0.6 mg/dL (0.6-1.3); GLUCOSE 106 mg/dL (74-106); MAGNESIUM - SERUM 2.2 mg/dL (1.8-2.4); PHOSPHOROUS 4.3 mg/dL (2.5-4.9); PROTEIN - SERUM 6.4 g/dL (6.4-8.2); SODIUM 139 mmol/L (136-145); UREA NITROGEN 7 mg/dL (7-18); eGFR NON AFRICAN AMERICAN > 90 mL/min (90-120)
--- NOTE | 2017-05-12 07:22 | NUR ---
PATIENT RESTING ON HER BACK. EYES ARE CLOSED. RESPIRATIONS ARE EVEN AND UNLABORED. CALL LIGHT IN PATIENT'S REACH. WILL MONITOR.
[2017-05-12 07:34] LABS: HYPOCHROMASIA OCC; LYMPHOCYTES 21 % (15-50); MONOCYTES 2 % (2-11); NEUTROPHILS 76 % (40-80); PLATELET ESTIMATE NORMAL; ROULEAUX 1+
[2017-05-12 08:33] VITALS: BP 112/63
[2017-05-12 09:02] LABS: INR 1.24 (0.85-1.17); PROTIME 15.5 SECONDS (11.6-15.0)
[2017-05-12 09:03] LABS: APTT 36.3 SECONDS (22.8-39.4)
--- NOTE | 2017-05-12 10:16 | NUR ---
PATIENT RESTING IN THE BED. FAMILY IN THE ROOM. TEMP 100.3. PRN TYLENOL GIVEN TO PATIENT. PATIENT DENIES ANY FURTHER NEEDS AT PRESENT TIME. CALL LIGHT IN PATIENT'S REACH. WILL MONITOR.
[2017-05-12 10:18] LABS: FUNGUS CULTURE RESULT 1 Candida albicans (())
[2017-05-12 13:00] VITALS: BP 89/40
[2017-05-12 16:14] VITALS: BP 94/57
[2017-05-12 17:11] LABS: ANCA - ANTIMYELOPEROXIDASE <9.0 U/mL (0.0-9.0); ANCA - ANTIPROTEINASE 3 <3.5 U/mL (0.0-3.5); ANCA - ATYPICAL <1:20 titer (Neg:<1:20); ANCA - CYTOPLASMIC <1:20 titer (Neg:<1:20); ANCA - PERINUCLEAR <1:20 titer (Neg:<1:20)
[2017-05-12 19:00] VITALS: BP 116/87
--- NOTE | 2017-05-12 20:30 | NUR ---
AWAKE,ALERT,NO COMPLAINTS VOICED AT PRESENT. IV INFUSING TO LEFT ARM WITHOUT REDNESS OR EDEMA NOTED. CL IN REACH. FAMILY AT BEDSIDE.
[2017-05-13] VITALS (41 sets, daily range): BP systolic 91–127; BP diastolic 50–73
--- NOTE | 2017-05-13 02:00 | NUR ---
PT IN BED WITH NO DISTRESS. RESPIRATIONS EVEN AND UNLABORED. SIDE RAILS X 2. BED IS LOW. CALL LIGHT IN REACH.
[2017-05-13 06:00] LABS: BASOPHILS 0 % (0-2); EOSINOPHILS 0.8 % (0-7); HEMATOCRIT 35.6 % (36.0-48.0); HEMOGLOBIN 11.4 g/dL (12-16); IMMATURE GRANULOCYTES 0.3 % (0-5); LYMPHOCYTES 16.8 % (15-50); MCH 22.7 pg (26.0-34.0); MCV 70.8 fL (80.0-100.0); MEAN PLATELET VOLUME 9.4 fL (7.4-10.4); MONOCYTES 2.5 % (2-11); NEUTROPHILS 79.6 % (40-80); PLATELET COUNT 267 10x3/uL (130-400); RBC 5.03 10x6/uL (4.00-5.40); RDW 18.9 % (11.5-14.5)
[2017-05-13 06:06] LABS: WBC 3.6 10x3/uL (4.8-10.8)
[2017-05-13 06:21] LABS: ALBUMIN 2.4 g/dL (3.4-5.0); ALKALINE PHOSPHATASE 85 U/L (46-116); ALT (SGPT) 15 U/L (10-68); BILIRUBIN - TOTAL 0.48 mg/dL (0.2-1.3); CALCIUM 7.9 mg/dL (8.5-10.1); CARBON DIOXIDE 26.5 mmol/L (21.0-32.0); CHLORIDE - SERUM 103 mmol/L (98-107); CREATININE - SERUM 0.7 mg/dL (0.6-1.3); GLUCOSE 98 mg/dL (74-106); MAGNESIUM - SERUM 2.2 mg/dL (1.8-2.4); PHOSPHOROUS 4.3 mg/dL (2.5-4.9); POTASSIUM - SERUM 3.1 mmol/L (3.5-5.1); PROTEIN - SERUM 7.1 g/dL (6.4-8.2); SODIUM 139 mmol/L (136-145); eGFR NON AFRICAN AMERICAN > 90 mL/min (90-120)
[2017-05-13 06:25] LABS: CALC OSMOLALITY 274 mosm/kg (275-300); UREA NITROGEN 5 mg/dL (7-18)
--- NOTE | 2017-05-13 06:27 | NUR ---
TO OR VIA STRECHER.
--- NOTE | 2017-05-13 10:26 | NUR ---
RECEIVED PT FROM OR VIA BED. ICU MONITORS CONNECTED. VSS.
--- NOTE | 2017-05-13 10:30 | NUR ---
FAMILY AT BEDSIDE, UPDATED BY DR GARCES.
--- NOTE | 2017-05-13 11:00 | NUR ---
SHIFT ASSESSMENT VIA FLOWSHEET, SEE FOR DETAILS.
--- NOTE | 2017-05-13 13:05 | NUR ---
PT AROUSES TO VOICE. VSS. CALL LIGHT AND KARATE INSTRUCTOR WITHIN REACH.
--- NOTE | 2017-05-13 13:53 | EC ---
PATIENT:EDMUND DAVIS DATE OF SERVICE: 04/30/17 SEX: F MEDICAL RECORD: [id number] DATE OF : [birth year] LOCATION:[place] [id number] AGE OF PATIENT: 32 ADMISSION DATE: 04/30/17 REFERRING PHYSICIAN: INTERPRETING PHYSICIAN: CONI RIVERA MD ECHOCARDIOGRAM REPORT ECHO CHARGES 4 ECHO COMPLETE CLINICAL DIAGNOSIS: FEVER - R/O ENDOCARDITIS ECHOCARDIOGRAPHIC MEASUREMENTS (adult normal given) AC root (d.<3.7cm) 2.8 LV Septum d (<1.2 cm> 1.1 Valve Excursion 2.0 LV Septum (systole) 1.7 Left Atria (s.<4.0cm> 3.0 LVPW d(<1.2cm) 1.0 RV (d.<2.3cm) 2.5 LVPW (sytole) 1.7 LV diastole(<5.6CM) 4.4 MV E-F(>70mm/sec) LV systole 2.4 LVOT Diameter 1.8 MV exc.(>10mm) Est.ejection fraction (50-75%) Pericardial Effusion N DOPPLER: LVIT A 77.0 E 85.0 LA RVSP 28.0 LVOT 121 AOP1/2T Asc. Ao 148 RVOT 89.0 RA PA 91.0 AV Gradient Peak 8.8 AV Mean 4.4 AV Area 1.5 MV Gradient Peak 4.5 MV Mean 2.1 MV Area COMMENTS: Federal Agent: 1 [employer] Tower Climber:1 Dr. Rivera TAPE# PACS TWO-DIMENSIONAL ECHOCARDIOGRAM WITH DOPPLER 1. Left ventricular chamber size is within normal limits. Left ventricular systolic function is normal. Overall ejection fraction is estimated at 55 percent. 2. Left atrium, right atrium, and right ventricular chamber sizes are within normal limits. 3. Valvular structures have normal structure and motion. 4. Doppler interrogation only reveals trace tricuspid regurgitation; no other valvular insufficiency or stenosis. Pulmonary artery systolic pressure is estimated ECHOCARDIOGRAM REPORT [id number] EDMUND DAVIS at 28 millimeters of mercury. 5. No evidence of pericardial effusion or left ventricular thrombus. 6. No evidence of vegetative endocarditis. CONI RIVERA MD at [id number] CC: [id number] DICTATION DATE: 05/01/172211 TIE MAN: ANTHONY 05/01/172211 ADM IN [facility] [address] [place] [place] [address]
--- NOTE | 2017-05-13 15:00 | NUR ---
REASSESSMENT VIA FLOWSHEET, SEE FOR DETAILS.
--- NOTE | 2017-05-13 16:45 | CN ---
PATIENT NAME:EDMUND BLACK [facility] MEDICAL RECORD: [id number] : 83 LOCATION:[facility].CV04 ADMIT DATE: 04/30/17 ACCOUNT: [id number] CONSULTING PHYSICIAN: SHELBI FORDE MD REFERRING PHYSICIAN: SINTIA MATTA MD DATE OF CONSULTATION: 05/11/2017 Rheumatology Consultation HISTORY OF PRESENT ILLNESS: Edmund Black is a 32-year-old woman, who I have been asked to evaluate by Dr. Maier regarding ground-glass pneumonitis changes in the lower lung tran and history of "rheumatoid arthritis." The patient reports that approximately in 2007, she developed some discomfort in the back of her neck, some pain around her wrists and pain around her knees, possibly slight joint swelling. She was evaluated by a family practitioner in [place] who is a relative, found to have evidence of rheumatoid arthritis. She was later evaluated by what she describes as warehouse trainer in [place]. The diagnosis was confirmed and she was treated with methotrexate 15 mg per week for 6 months. She thinks it may have helped some. She wished to get at some point in the future, so methotrexate was discontinued in approximately 2008. She had no known complications from the drug. She was started on Plaquenil 200 mg daily, approximately in 2009 and remained on this until approximately 4 weeks ago. She denies any Plaquenil known rash, nausea. However, she has not had Plaquenil eye exam. She used Plaquenil throughout her , which was through in vitro fertilization. The child was born without complications in October 2014. She remained free of any musculoskeletal flares for a number of years. However, approximately 7-8 years ago, she had occasional flare of arthralgias and slight joint swelling, lasting less than 48 hours, responding to ibuprofen. She started having some mild flares in 2015 characterized by 1-2 a day episodes of discomfort, stiffness, perhaps low-grade swelling which would respond to ibuprofen or Aleve. She never had major flares. Current serologies show positive CHARU screen, positive SSA, negative SSB, negative Sm, negative SUB ACUTE CARE NURSE, negative double-stranded DNA, negative Scl-70, negative anti-chromatin, negative anti-centromere. C3 is 67 (90-207), C4 is 17.5 (17.4-52.2). Anti-Lucinda-1 negative. Anti-CCP pending, ANCA pending, MPO pending, anti-PR3 pending. I cannot find the results of rheumatoid factor. The patient was well until approximately 4-6 weeks ago when she has had onset of fatigue, shortness of breath. She did not have any cough. She presented to Dr. Matta's office with these symptoms was having a low-grade fever and reportedly had an abnormal chest x-ray showing evidence of bilateral pneumonia, treated initially with clarithromycin and Rocephin and Levaquin. Because of continued problems, she was admitted to acute care on 04/30/2017. Records indicate she has completed course of 10 days of doxycycline, Levaquin and Rocephin. CONSULT REPORT [id number] EDMUND BLACK She was placed on amphotericin 6 days ago without any perceived benefit, plans to continue for full 10-day course. Other studies include negative urine histoplasma and blasto antigens, negative histo-serum antibodies, HIV negative, urine Legionella negative, Mycoplasma PCR negative, Aspergillus serologies negative, QuantiFERON-TB Gold negative, cryptococcus antigen negative, fungal smear negative, AFB smear on bronchoscopy washings negative. Plans are to continue full course of 10 days of amphotericin. If she does not improve, consider open lung biopsy. Her cough did not begin until a couple of weeks after the onset of shortness of breath, has been dry. She has not had any sinus drainage, sore throat, lymphadenopathy, chest pain, abdominal pain, nausea or vomiting. Her appetite has decreased. She has lost 12 pounds. She continued to have low-grade temp and some night sweats. She has not had seizures, photosensitivity Sicca symptoms, aphthae, lymphadenopathy, pleural effusion, pericarditis, hepatitis, burning or hematuria, TIA, stroke, bleeding or clotting disorders. On admission, she had developed leukopenia, anemia with normal platelet count. She has not had Raynaud's or sclerodactyly. CURRENT MEDICATIONS: Potassium 20 mEq b.i.d., acetaminophen p.r.n., amphotericin 250 mg every 24 hours since 05/06/2017, Tussionex 5 mL p.r.n., lidocaine 2 mL every 4 hours p.r.n., Tessalon Perles 200 mg t.i.d., albuterol inhaler, Zofran p.r.n., Niferex 150 daily, pantoprazole 40 mg daily, ibuprofen 800 mg every 8 hours p.r.n., Tylenol p.r.n. PAST MEDICAL HISTORY: She has no known drug allergies. She is 1, para 1 via in vitro fertilization. She has regular menstrual cycle. She has never used control pills or other hormones. She has not had any other significant surgical procedures. She had . She denies hypertension, diabetes. Her history of arthritis is outlined above. She has never been treated with TNF inhibitor such as Remicade, Enbrel, Humira or other biologic drugs such as Orencia or Xeljanz. She has not been on any oral or injectable corticosteroids. FAMILY HISTORY: Her mother has arthritis, possibly osteoarthritis. There is no known family history of lupus or other connective tissue disease or rheumatoid arthritis. SOCIAL HISTORY: She rarely drinks alcohol. She does not smoke. She works in a local [employer]. She has no known exposure to dust or vapors. She last traveled to [facility] in 2013. She travelled to [facility] in October. She has not been exposed to pets or farm animals, birds or bats. REVIEW OF SYSTEMS: She denies headache, tinnitus, vertigo, hair loss, dysphagia, reflux, asthma, wheezing, epigastric discomfort, melena, hematochezia, dysuria, urgency, incontinence, tingling, paresthesias, bruising or bleeding. PHYSICAL EXAMINATION: CONSULT REPORT [id number] EDMUND BLACK VITAL SIGNS: Blood pressure 112/65, pulse 99 and regular, respirations 20, temperature 98. GENERAL: This is a thin woman, appears tired, but in no acute distress. HEENT: Head: Normal female hair pattern. There is no evidence of alopecia. Eyes, conjunctivae are clear. Extraocular movements are normal. Throat clear. Mouth is moist without lesions. Parotid and submandibular glands are not enlarged. NECK: Supple, trachea is midline. There is no adenopathy in neck, supraclavicular areas, axilla or inguinal areas. LUNGS: Revealed few crackles in the bases without rub, wheeze or bronchial breath sound. CARDIOVASCULAR: S1, S2 are normal without gallop, murmur or rub. Carotid arteries 2+ without delay or bruit. Pedal pulses 1-2+. There is no dependent edema. ABDOMEN: Soft, nontender. Liver, spleen, kidneys not palpable. MUSCULOSKELETAL: There is no inflammation or limited motion deformity wrists, fingers, elbows, knees or ankles, all joints appear perfectly normal. Muscles are nontender. Point count for fibromyalgia is negative. SKIN: Without elbow nodules, sclerodactyly, purpura, petechiae or infarcts, malar rash, or discoid lupus. PSYCHIATRIC: Normal affect. IMPRESSION: 1. Polyarthralgia/polyarthritis onset approximately in 2007. Initial diagnosis of rheumatoid arthritis: A. Treated with methotrexate 15 mg weekly for 6 months, discontinued in approximately 2008. "Helped." No known side effects. B. Treated with Plaquenil 200 mg daily since approximately 2009 without known side effects. C. No known use of immunosuppressive drugs, biological drugs, or corticosteroids. 2. Abnormal serologies: A. Positive CHARU screen. B. Positive SSA. C. Decreased C3. 3. Bilateral pneumonitis with ground-glass changes, unresponsive to broad-spectrum antibiotics and amphotericin. 4. Continued low-grade fever and sweats probably secondary to pneumonitis. 5. Leukopenia. 6. Anemia. RECOMMENDATIONS: 1. Await results of CCP. 2. RA. 3. Hand x-rays. 4. Await results of c-ANCA and p-ANCA. 5. Agree with plan for open lung biopsy if does not respond to 3-4 days of amphotericin. 6. Continue supportive care. 7. Await results of fungal and AFB cultures from bronchoscopy. DISCUSSION: Cause of Ms. Black's arthritis/arthralgias which started in 2007 is somewhat open to question. She reports she was diagnosed with rheumatoid arthritis by warehouse trainer in [place]. We do not have the results of any of those tests. She had very mild arthritis or arthralgias treated with CONSULT REPORT [id number] RYANEDMUND RUSSELL methotrexate and she reports helped considerably for 6 months. She stopped because later wished to become . She then switched to Plaquenil, which she used successfully since 2009 without known side effects and even took it throughout her . She in distant past had some brief flares of arthralgias/arthritis, treated with 1-2 [id number] nonsteroidals. These flareups remained quiet for many years up until 2016 since had a few episodes. She has features that are suggestive of lupus including positive CHARU, positive SSA, leukopenia, anemia. Certainly, lupus or other connective tissue disease can cause pneumonitis of this type. It would be highly unusual for rheumatoid arthritis to cause diffuse alveolar infiltrates, but it definitely is possible. She has not really been on any immunosuppressive drugs. Plaquenil is relatively non-immunosuppressive. TRANSINT:[id number] Voice Confirmation ID: [id number] DOCUMENT ID: [id number] SHELBI FORDE MD at 1645 CC: [id number] DICTATION DATE: 05/11/172048 BROOM MAKER: 05/12/17 0048 ADM IN [facility] [address] [id number]
--- NOTE | 2017-05-13 17:00 | NUR ---
K PAD PLACED FOR PT C/O PAIN IN THE RIGHT SHOULDER.
--- NOTE | 2017-05-13 17:20 | NUR ---
PT CONFIRMS K PAD EFFECTIVE IN RELIEF OF SHOULDER PAIN.
--- NOTE | 2017-05-13 18:00 | NUR ---
FAMILY AT BEDSIDE, PT AWAKE AND CONVERSING WITH VISITORS. VSS.
--- NOTE | 2017-05-13 19:15 | NUR ---
REPORT RECEIVED AND SHIFT ASSESSMENT COMPLETED SEE FLOWSHEET. PT AWAKE AND ALERT. PT DENIES NEEDS AT THIS TIME. DOES ADMIT TO PAIN IN RIGHT SHOULDER, K-PAD IN PLACE MEDS GIVEN DOCUMENTED ON DEC. BEING MONITORED PER STANDARD ICU PROTOCOL WITH ALL ALARMS VERIFIED AND CHECKED. IV FLUIDS ARE ALL LABELED AND DATED CORRECTED AND ARE CURRENT. IV LINES ARE CURRENT AND WERE PLACED TODAY TO BE CHANGED ON 05/16/17. RIGHT LATERAL CHEST DRESSING AT SURGICAL SITE CDI RIGHT LATERAL CHEST TUBE TO 20CM SUCTION NO LEAK DETECTED. SCANT BLOODY DRAINAGE IN TUBING. PT IS ON AIR OVERLAY. TURNED AND REPOSTIONED USING PILLOWS FOR SUPPORT AND TO RELIEVE PRESSURE. BED IS IN LOW POSITION AND CALL LIGHT IS IN REACH. PT WITH EPIDUAL INFUSING AND PT CONTROLLED BUTTON IS IN REACH. PT DENIES ANY PAIN EXCEPT WITH THE RIGHT SHOULDER. EPIDURAL SITE WNL PT IS COUGHING WITH GOOD EFFORT AND WITH SCANT AMOUNT OF BLOODY PRODUCTION.
--- NOTE | 2017-05-13 21:30 | NUR ---
PT FED SMALL BITES OF JELLO PER REQUEST AND IN ACCORDANCE WITH CLEAR LIQUID DIET ORDER. TOLERATED WELL. DENIES NAUSEA
--- NOTE | 2017-05-13 22:05 | NUR ---
RT AT BEDSIDE PT RECEIVING UPDRAFT
--- NOTE | 2017-05-13 23:00 | NUR ---
SHIFT REASSESSMENT COMPLETED SEE FLOWSHEET. NO SIGNIFICANT CHANGES. PT ABLE TO ASSIST WITH TURNING AND REPOSITIONING. PILLOWS USED FOR SUPPORT AND TO RELEIVE PRESSURE. LABS REVIEWED AND K+ WNL NO INTERVENTION AT THIS TIME.
[2017-05-14] VITALS (24 sets, daily range): BP systolic 95–126; BP diastolic 52–74
--- NOTE | 2017-05-14 01:00 | NUR ---
PT SLEEPING WELL TONIGHT. EASILY AWAKEN. NEURO STATUS INTACT.
--- NOTE | 2017-05-14 03:00 | NUR ---
SHIFT REASSESSMENT COMPLETED SEE FLOWSHEET. KPAD REMAINS TO RIGHT SHOULDER. PT STATES IT IS SOMEWHAT BETTER BUT STILL SORE. ENCOURAGED GENTLY ROM PT COMPLIANT
--- NOTE | 2017-05-14 04:00 | NUR ---
RT AT BEDSIDE COMPLETING UPDRAFT. F/C CARE DONE PER PROTOCOL USING SURE STEP SYSTEM.
--- NOTE | 2017-05-14 05:30 | NUR ---
VENOUS SPECIMENS DRAWN AND SENT FOR ANALYSIS
[2017-05-14 05:52] LABS: BASOPHILS 0.3 % (0-2); EOSINOPHILS 0 % (0-7); HEMATOCRIT 31.5 % (36.0-48.0); IMMATURE GRANULOCYTES 0.3 % (0-5); MCH 22.5 pg (26.0-34.0); MCHC 31.7 g/dL (31.0-37.0); MCV 70.8 fL (80.0-100.0); MEAN PLATELET VOLUME 9.4 fL (7.4-10.4); MONOCYTES 5.3 % (2-11); NEUTROPHILS 82.1 % (40-80); PLATELET COUNT 262 10x3/uL (130-400); RBC 4.45 10x6/uL (4.00-5.40); RDW 19.3 % (11.5-14.5)
[2017-05-14 06:13] LABS: ALKALINE PHOSPHATASE 69 U/L (46-116); ALT (SGPT) 16 U/L (10-68); CALCIUM 7.7 mg/dL (8.5-10.1); CARBON DIOXIDE 23.3 mmol/L (21.0-32.0); CHLORIDE - SERUM 104 mmol/L (98-107); CREATININE - SERUM 0.6 mg/dL (0.6-1.3); GLUCOSE 102 mg/dL (74-106); MAGNESIUM - SERUM 2.1 mg/dL (1.8-2.4); PHOSPHOROUS 4.2 mg/dL (2.5-4.9); PROTEIN - SERUM 6.2 g/dL (6.4-8.2); SODIUM 139 mmol/L (136-145); eGFR NON AFRICAN AMERICAN > 90 mL/min (90-120)
[2017-05-14 06:14] LABS: CALC OSMOLALITY 276 mosm/kg (275-300); POTASSIUM - SERUM 3.1 mmol/L (3.5-5.1); UREA NITROGEN 9 mg/dL (7-18)
--- NOTE | 2017-05-14 06:52 | NUR ---
1ST BAG OF KCL HUNG TO TREAT K+3.1 PER PROTOCOL. PT TEACHING DONE. PT DENIES NEEDS AT THIS TIME.
--- NOTE | 2017-05-14 07:30 | NUR ---
SHIFT ASSESSMENT VIA FLOWSHEET, SEE FOR DETAILS.
--- NOTE | 2017-05-14 09:15 | NUR ---
FAMILY AT BEDSIDE, UPDATE PROVIDED.
--- NOTE | 2017-05-14 09:40 | NUR ---
DR HICKS HERE TO SEE PT.
--- NOTE | 2017-05-14 09:50 | NUR ---
Nutrition Follow Up: Chart reviewed. Pt is POD 1 VATS procedure. Pt remains on a clear liquid diet. Pt continues not meeting est nutritional needs. Wt stable. +BM 05/11/17. Meds and labs reviewed. Rec advancing diet as tolerated when medically feasible. If diet is unable to advance within the next 24 hours rec begin Procalamine @ 50 ml/hr. RD will continue to monitor pt progress.
--- NOTE | 2017-05-14 10:05 | NUR ---
DR GRIFFIN HERE TO SEE PT.
--- NOTE | 2017-05-14 11:15 | NUR ---
REASSESSMENT VIA FLOWSHEET, SEE FOR DETAILS.
--- NOTE | 2017-05-14 12:01 | NUR ---
IPPB PER RT. USE EXPLAINED TO PATIENT.
--- NOTE | 2017-05-14 12:14 | NUR ---
SPOKE WITH JESSIE IN LAB REGARDING SEND OUT ORDER, STATES RECEIVED AND RELAYED TO MARIAM.
--- NOTE | 2017-05-14 12:25 | NUR ---
AT BEDSIDE, UPDATE PROVIDED.
--- NOTE | 2017-05-14 14:22 | NUR ---
IPPB IN PROGRESS PER RT.
--- NOTE | 2017-05-14 14:45 | NUR ---
COMPLETE BED BATH AND LINEN CHANGE PROVIDED. PT TOLERATED ROLLING SIDE TO SIDE WITH S/S OF DISTRESS. VSS, CALL LIGHT WITHIN REACH.
--- NOTE | 2017-05-14 15:15 | NUR ---
REASSESSMENT VIA FLOWSHEET, SEE FOR DETAILS.
[2017-05-14 16:04] LABS: APPEARANCE CLEAR (CLEAR); BILIRUBIN NEGATIVE (NEGATIVE); COLOR YELLOW (YELLOW); GLUCOSE NEGATIVE (NEGATIVE); KETONE NEGATIVE (NEGATIVE); LEUKOCYTE ESTERASE NEGATIVE (NEGATIVE); NITRITE NEGATIVE (NEGATIVE); PROTEIN NEGATIVE (NEGATIVE); SPECIFIC GRAVITY 1.005 (1.005-1.020); UROBILINOGEN NORMAL (NORMAL)
--- NOTE | 2017-05-14 18:15 | NUR ---
FAMILY AT BEDSIDE. PT VOICES NO ADDITIONAL NEEDS AT THIS TIME. VSS.
--- NOTE | 2017-05-14 19:10 | NUR ---
SHIFT ASSESSMENT COMPLETE, SEE FLOWSHEET FOR DETAILS. PATIENT LAYING IN BED AT 30 DEGREES AND AWKAKE AND ALERT WHEN ENTERING ROOM. A&O X4, PUPILS ARE ERRLA, LUNG SOUNDS DIMINISHED ON ENTIRE RIGHT SIDE, CRACKLES HEARD WITH AUSCULATION OF LEFT SIDE. RR ARE SHALLOW AND EVEN. PATIENT ABLE TO GET TO 600 ON IS, INSTRUCTED TO CONTINUE TO DO THEM EVERY HOUR WHILE AWAKE AND TO DEEP BREATH AND COUGH. PATIENT REPORTS UNDERSTANDING. GOOD PRODUCTIVE COUGH WITH SLIGHT BLOOD TINGED SPUTUM. PATIENT STATES IT HAS IMPROVED SINCE YESTERDAY. CHEST TUBE ON RIGHT SIDE, DRESSING C/D/I, SEROSANG FLUID DRAINING. SET TO 20CM H2O SUCTION. INCISION ON RIGHT LATERAL SIDE IS COVERED WITH DRESSING AND C/D/I. BOWEL SOUNDS ACTIVE. CRITICORE RICHARDSON DRAINING CLEAR YELLOW URINE. PERIPHERAL PULSES +2, LEFT RADIAL A-LINE, EXTREMITY IS PINK WITH GOOD SENSATION. SITE IS COVERED WITH DRESSING AND WRIST PROTECTOR IN PLACE. EPIDURAL FOR PAIN MANAGEMENT. SITE IS C/D/I WITH NO WETNESS FELT. PATIENT DENIES PAIN AT THIS TIME. VSS, PATIENT HAS TEMP OF 100 F, COVERED ONLY WITH SHEET, WILL MONITOR. WATER GIVEN PER REQUESTS, REPOSISTIONED FOR COMFORT. DENIES FURTHER NEED AT THIS TIME.
[2017-05-14 20:08] LABS: ACID FAST SMEAR Negative (()); AFB SPECIMEN PROCESSING Tissue Grinding (())
--- NOTE | 2017-05-14 21:10 | NUR ---
NO VISITORS AT THIS TIME. NIGHT MEDS GIVEN. REFUSED POTASSIUM PILL. STATES "I CAN'T SWALLOW THE PILL, IT'S TOO BIG AND I'LL THROW UP ALL NIGHT".
--- NOTE | 2017-05-14 23:00 | NUR ---
REASSESSMENT COMPLETE, SEE REASSESSMENT FLOWSHEET. TEMP INCREASED TO 101F, ICE PACKS PLACED ON GROIN. WILL MONITOR. PATIENT DENIES NEED. WILL MONITOR.
[2017-05-15] VITALS (24 sets, daily range): BP systolic 90–124; BP diastolic 49–78
--- NOTE | 2017-05-15 01:00 | NUR ---
PATIENT RESTING WITH EYES CLOSED. RR EVEN AND NONLABORED. VSS.
--- NOTE | 2017-05-15 03:00 | NUR ---
REASSESSMENT COMPLETE, NO ACUTE CHANGES. SEE FLOWSHEET FOR DETAILS. VSS, PATIENT DENIES NEED. PULLING 750 ON IS, GOOD EFFORT WITH COUGHING AND DEEP BREATHING.
--- NOTE | 2017-05-15 05:00 | NUR ---
PATIENT REPOSISTIONED FOR COMFORT AND ICE PACKS REPLACED. TEMP COMING DOWN. HEATING PAD REPOSISTIONED UNDER RIGHT SHOULDER FOR PAIN. STATES SHE IS COMFORTABLE, WILL MONITOR.
[2017-05-15 06:14] LABS: BASOPHILS 0.3 % (0-2); EOSINOPHILS 0.3 % (0-7); HEMATOCRIT 31.8 % (36.0-48.0); HEMOGLOBIN 10.1 g/dL (12-16); IMMATURE GRANULOCYTES 0.3 % (0-5); MCH 22.6 pg (26.0-34.0); MCHC 31.8 g/dL (31.0-37.0); MCV 71.1 fL (80.0-100.0); MONOCYTES 4.8 % (2-11); NEUTROPHILS 79.3 % (40-80); PLATELET COUNT 266 10x3/uL (130-400); RBC 4.47 10x6/uL (4.00-5.40); RDW 19.7 % (11.5-14.5)
[2017-05-15 06:38] LABS: ALBUMIN 2.1 g/dL (3.4-5.0); ALKALINE PHOSPHATASE 69 U/L (46-116); ALT (SGPT) 17 U/L (10-68); BILIRUBIN - TOTAL 0.39 mg/dL (0.2-1.3); CALC OSMOLALITY 271 mosm/kg (275-300); CALCIUM 7.5 mg/dL (8.5-10.1); CARBON DIOXIDE 26.7 mmol/L (21.0-32.0); CHLORIDE - SERUM 103 mmol/L (98-107); CREATININE - SERUM 0.7 mg/dL (0.6-1.3); GLUCOSE 92 mg/dL (74-106); MAGNESIUM - SERUM 2.1 mg/dL (1.8-2.4); POTASSIUM - SERUM 3.7 mmol/L (3.5-5.1); PROTEIN - SERUM 6.5 g/dL (6.4-8.2); SODIUM 137 mmol/L (136-145); UREA NITROGEN 7 mg/dL (7-18); eGFR NON AFRICAN AMERICAN > 90 mL/min (90-120)
[2017-05-15 06:40] LABS: PHOSPHOROUS 2.8 mg/dL (2.5-4.9)
--- NOTE | 2017-05-15 09:42 | NUR ---
Patient Name: EDMUND DAVIS Encounter No: [id number] : 1985 Primary Insurance: BLUE CROSS TRUE BLUE PPO Anticipated DC Date: 05-08-2017 Planned Disposition: Home External Planned Provider: : DCP follow-up note: Patient and family in agreement with discharge plan. No changes to plan. Case management will follow and assist as needed. Donna Roe
[2017-05-15 12:17] LABS: FUNGUS STAIN Final report (())
--- NOTE | 2017-05-15 17:56 | NUR ---
BED BATH AND LINEN CHANGE COMPLETED. RICHARDSON CARE PROVIDED.
--- NOTE | 2017-05-15 19:10 | NUR ---
SHIFT ASSESSMENT COMPLETE, SEE FLOWSHEET FOR DETAILS. PATIENT ALERT AND ORIENTED X4, ON ROOM AIR. RR EVEN AND NONLABORED. RIGHT LUNG SOUNDS VERY DIMINISHED, LEFT SIDE UPPER LOBE HAS CRACKLES, LOWER DIMINISHED. S1S2 WITH NSR ON MONITOR. INCISION AND CT ON R LATERAL SIDE, DRESSINGS C/D/I. CT SUCTION OFF AT THIS TIME PER ORDER. BOWEL SOUNDS ACTIVE X4, ABDOMEN NON-DISTENDED AND NON-TENDER TO TOUCH. CRITICORE RICHARDSON DRAINING CLEAR YELLOW URINE, NO KINKS PRESENT. PATIENT HAS A TEMP OF 102. BLANKET REPLACED WITH SHEET AND WILL GIVE PRN TYLENOL AND REASSESS. CORY HOSES ON AT THIS TIME AND SCD'S PLACED BACK ON. SKIN INTEGRITY CHECK PERFORMED AND NO ISSUES SEEN. PERIPHERAL PULSES +2, CAP REFILL < 3 SECONDS. LEFT RADIAL A-LINE ZEROED AND HAS GOOD WAVE FORM. DRESSING C/D/I, EXTREMITY WITH GOOD SENSATION AND WNL. EPIDURAL SITE IS C/D/I WITH NO WETNESS FELT. PATIENT DENIES PAIN. HOB ELEVATED @ 30 DEGREES. PATIENT POSISTIONED FOR COMFORT. VSS, WILL MONITOR.
--- NOTE | 2017-05-15 19:20 | NUR ---
IS DONE WITH PATIENT, REACHED 500, STATES SHE IS TIRED TONIGHT.
--- NOTE | 2017-05-15 19:35 | NUR ---
TYLENOL GIVEN FOR TEMP OF 102.
--- NOTE | 2017-05-15 20:50 | NUR ---
NIGHT MEDS GIVEN, POTASSIUM MIXED WITH APPLE JUICE AND PATIENT TOLERATED WELL.
--- NOTE | 2017-05-15 21:30 | NUR ---
IPPB DONE WITH PATIENT PER RT, FOLLOWED UP WITH IS, REACHED 500 AGAIN.
--- NOTE | 2017-05-15 23:10 | NUR ---
REASSESSMENT COMPLETE, NO ACUTE CHANGES. VSS, PATIENT DENIES NEED AT THIS TIME. SEE FLOWSHEET FOR DETAILS.
--- NOTE | 2017-05-15 23:20 | NUR ---
BETTER EFFORT WITH IS THIS TIME. PATIENT SET UP IN BED AND PULLED CLOSE TO 750. PATIENT DENIES NEED, VSS, WILL MONITOR.
[2017-05-16] VITALS (24 sets, daily range): BP systolic 94–131; BP diastolic 56–83
--- NOTE | 2017-05-16 01:00 | NUR ---
PATIENT RESTING WITH EYES CLOSED. RR EVEN AND NONLABORED. VSS. AFEBRILE AT THIS TIME.
--- NOTE | 2017-05-16 03:05 | NUR ---
REASSESSMENT COMPLETE, NO ACUTE CHANGES. PATIENT AFEBRILE. VSS.
--- NOTE | 2017-05-16 05:10 | NUR ---
PATIENT RESTING WITH EYES CLOSED. RR EVEN AND NONLABORED. VSS. WILL CONTINUE TO MONITOR.
--- NOTE | 2017-05-16 06:00 | NUR ---
RICHARDSON CARE PROVIDED AT THIS TIME. DENIES NEED AT THIS TIME.
[2017-05-16 06:15] LABS: HEMATOCRIT 31.6 % (36.0-48.0); HEMOGLOBIN 9.8 g/dL (12-16); MCH 22.1 pg (26.0-34.0); MCV 71.3 fL (80.0-100.0); PLATELET COUNT 248 10x3/uL (130-400); RBC 4.43 10x6/uL (4.00-5.40); RDW 19.7 % (11.5-14.5)
[2017-05-16 06:16] LABS: WBC 2.3 10x3/uL (4.8-10.8)
[2017-05-16 06:23] LABS: ALBUMIN 2.1 g/dL (3.4-5.0); ALKALINE PHOSPHATASE 71 U/L (46-116); ALT (SGPT) 16 U/L (10-68); BILIRUBIN - TOTAL 0.35 mg/dL (0.2-1.3); CALC OSMOLALITY 275 mosm/kg (275-300); CALCIUM 7.8 mg/dL (8.5-10.1); CARBON DIOXIDE 30.1 mmol/L (21.0-32.0); CHLORIDE - SERUM 103 mmol/L (98-107); CREATININE - SERUM 0.6 mg/dL (0.6-1.3); GLUCOSE 128 mg/dL (74-106); MAGNESIUM - SERUM 2.4 mg/dL (1.8-2.4); PROTEIN - SERUM 6.7 g/dL (6.4-8.2); SODIUM 138 mmol/L (136-145); UREA NITROGEN 7 mg/dL (7-18); eGFR NON AFRICAN AMERICAN > 90 mL/min (90-120)
[2017-05-16 06:24] LABS: PHOSPHOROUS 4.5 mg/dL (2.5-4.9)
[2017-05-16 07:04] LABS: LYMPHOCYTES 18 % (15-50); NEUTROPHILS 82 % (40-80); PLATELET ESTIMATE NORMAL
--- NOTE | 2017-05-16 09:56 | NUR ---
UPDATE GIVEN TO DR. GARCES.
--- NOTE | 2017-05-16 10:35 | NUR ---
A-LINE DC'D PER ORDER. MANUAL PRESSURE APPLIED TIMES 5 MINUTES. CLEAR DRESSING APPLIED. PT INSTRUCTED TO REPORT ANY BLEEDING OR SWELLING.
--- NOTE | 2017-05-16 11:34 | OP ---
PATIENT NAME: EDMUND DAVIS MEDICAL RECORD: [id number] :83 LOCATION:[facility].CV04 ADMISSION DATE:04/30/17 SURGEON: MICHAEL PARHAM MD DATE OF OPERATION: 05/13/2017 SURGEON: Michael Parham MD ANESTHESIA: General endotracheal double lumen tube, Dr. Barnett. OPERATION PERFORMED: Right video-assisted thoracoscopy with biopsy of the right upper, middle, and lower lobes with cultures and pathology. FINDINGS OF THE OPERATION: There was no pleural effusion. The lung was very edematous and inflamed, especially the lower lobe which would not collapse well. The frozen section demonstrated no malignancy. Cultures were sent for aerobe, anaerobe, TB and fungus. ESTIMATED BLOOD LOSS: Less than 50 cc. DESCRIPTION OF PROCEDURE: After informed consent, adequate preoperative medication evaluation, the patient was brought to the operating room, placed on the table in the supine position. After induction of general endotracheal anesthesia and application of appropriate monitoring devices, flexible fiberoptic bronchoscopy and placement of a double lumen tube, the patient was turned in a left lateral decubitus position. The right chest prepped and draped in sterile field, utilizing Betadine scrub, alcohol, and Betadine solution. A Betadine-impregnated drape was also used. Pressure points were protected as well as neurological structures. A small incision was made in the mid axillary line ninth interspace and the port for the endoscope was placed. The next 2 ports anterior fifth and posterior seventh were placed under direct vision. There was no fluid. The lower lobe was quite edematous and did not deflate well. The mediastinum was examined. There were no abnormal mediastinum nodes or pleural lesions. The biopsies were then taken from the right lower lobe, right middle lobe, and right upper lobe utilizing Endo-MAMADOU staplers. Pieces of each were sent for tissue cultures as well as histology. The chest was irrigated. A #28 Silicone chest tube was placed and the camera port was placed in the apex of the chest under vision with the endoscope anteriorly. The tube was secured. The chest was again irrigated. Instrument count and sponge count were correct times 2. The anterior and posterior ports were closed with 3-0 Vicryl and 5-0 subcuticular Monocryl. Sterile dressings were applied. The patient tolerated the procedure well and was transferred to the CV ICU in satisfactory condition. TRANSINT:[id number] Voice Confirmation ID: [id number] DOCUMENT ID: [id number] OPERATIVE REPORT [id number] EDMUND DAVIS EDWARD MD at 1134 CC: [id number] DICTATION DATE: 05/13/17 1012 BINDERY CUTTER OPERATOR: 05/13/17 1106 ADM IN [id number] [place] [address]
--- NOTE | 2017-05-16 13:50 | NUR ---
RICHARDSON CATH DC'D PER ORDER. EPIDURAL PREVIOUSLY DC'D PER ANESTHESIA. SITE REMAINS CLEAN AND DRY.
--- NOTE | 2017-05-16 14:05 | NUR ---
UP IN CHAIR PER P.T.
--- NOTE | 2017-05-16 15:35 | NUR ---
VOIDED POST RICHARDSON DC.
--- NOTE | 2017-05-16 15:40 | NUR ---
SET UP FOR BATH. PT BATHED SELF. BACK TO BED WITH FRESH LINENS.
--- NOTE | 2017-05-16 19:10 | NUR ---
SHIFT ASSESSMENT COMPLETE, PATIENT SITTING UP IN BED AT A 45 DEGREE ANGLE. SEEMS TO BE FEELING MUCH BETTER. SHE IS ALERT AND ORIENTED X4. RR EVEN AND NONLABERED, RIGHT SIDE OF LUNGS ARE STILL DIMINISHED IN ALL LOBES, JULIAN CLEAR, LLL DIMINSHED. CHEST TUBE REMOVED TODAY. SITE IS COVERED WITH DRESSING AND IS C/D/I. S1S2 WITH NSR ON MONITOR. BOWEL SOUNDS ACTIVE X4, ABDOMEN NON-DISTENDED AND NON-TENDER TO TOUCH. RICHARDSON CATHETER WAS REMOVED TODAY WELL, HAS VOIDED SINCE AND DENIES PROBLEMS. PERIPHERAL PULSES +2, CAP REFILL < 3 SECONDS. LEFT RADIAL A-LINE REMOVED TODAY. SITE C/D/I. EPIDURAL REMOVED WELL, SITE WNL. PATIENT DENIES PAIN AT THIS TIME. SCD'S AND CORY'S REMOVED FOR SKIN INTEGRITY CHECK, SKIN WNL. REQUESTS SCD'S BE LEFT OFF. PATIENT IS NOW WALKING WITH ASSISST. VSS, DENIES NEED AT THIS TIME.
--- NOTE | 2017-05-16 21:00 | NUR ---
NIGHT MEDS GIVEN, PRN PAIN MED GIVEN WELL. FATHER AND MOTHER IN [place] AT BEDSIDE VISITING AT THIS TIME. PT DENIES NEED.
--- NOTE | 2017-05-16 23:00 | NUR ---
REASSESSMENT COMPLETE, NO ACUTE CHANGES. SEE REASSESSMENT FLOWSHEET.
--- NOTE | 2017-05-16 23:20 | NUR ---
PATIENT ON CL TO USE BATHROOM. WALKED TO BATHROOM WITH MINIMAL ASSISST. VOIDED CLEAR YELLOW URINE. CHANGED BEDSHEETS AT THIS TIME. RETURNED TO BED AND PLACED ON MONITOR. DENIES FURTHER NEED AT THIS TIME.
[2017-05-17] VITALS (23 sets, daily range): BP systolic 95–124; BP diastolic 52–81
--- NOTE | 2017-05-17 01:00 | NUR ---
RESTING WITH EYES CLOSED, RR EVEN AND NONLABORED.
--- NOTE | 2017-05-17 03:00 | NUR ---
REASSESSMENT COMPLETE, NO ACUTE CHANGES, SEE FLOWSHEET.
--- NOTE | 2017-05-17 04:05 | NUR ---
PATIENT TO XRAY.
--- NOTE | 2017-05-17 05:00 | NUR ---
DENIES NEED AT THIS TIME.
[2017-05-17 06:18] LABS: HEMATOCRIT 31.8 % (36.0-48.0); MCH 22.4 pg (26.0-34.0); MCHC 31.4 g/dL (31.0-37.0); MCV 71.1 fL (80.0-100.0); MEAN PLATELET VOLUME 9.4 fL (7.4-10.4); RBC 4.47 10x6/uL (4.00-5.40); RDW 19.3 % (11.5-14.5)
[2017-05-17 06:26] LABS: WBC 5.7 10x3/uL (4.8-10.8)
[2017-05-17 07:06] LABS: CALC OSMOLALITY 276 mosm/kg (275-300); CALCIUM 8.1 mg/dL (8.5-10.1); CARBON DIOXIDE 28.6 mmol/L (21.0-32.0); CHLORIDE - SERUM 104 mmol/L (98-107); CREATININE - SERUM 0.7 mg/dL (0.6-1.3); GLUCOSE 108 mg/dL (74-106); POTASSIUM - SERUM 4.1 mmol/L (3.5-5.1); SODIUM 138 mmol/L (136-145); UREA NITROGEN 13 mg/dL (7-18); eGFR NON AFRICAN AMERICAN > 90 mL/min (90-120)
--- NOTE | 2017-05-17 17:25 | NUR ---
SET UP FOR HYGIENE CARE. BED LINENS CHANGED.
--- NOTE | 2017-05-17 18:06 | NUR ---
UP WALKING WITH FAMILY.
--- NOTE | 2017-05-17 19:30 | NUR ---
REPORT RECVD, CARE ASSUMED. INITIAL ASSMNT COMPLETED. SEE FLOWSHEET. UP IN CHAIR AT BEDSIDE. AOX4. PERRLA. MAEW. RESTING WITH NO DISTRESS. RESP UNLABORED. LUNG SOUNDS DIM. SPO2 98% ON RA. SR ON THE MONITOR. PULSES PALP X4. HEELS BRIDGED. UP TO BR AD JOAQUÍN TO VOID. ABD SOFT. BSA X4. SNACK AND PO FLUIDS PROVIDED. AFEBRILE. DENIES DISCOMFORT. TEDS/SCDS IN USE. AIR OVERLAY REMAINS FOR COMFORT. HOB UP. C/L IN REACH. CONT CURRENT POC.
--- NOTE | 2017-05-17 21:00 | NUR ---
HS MEDS GIVEN. PRN PERCOCET REQUESTED FOR PAIN CONTROL UP AD JOAQUÍN IN ROOM TO VOID. INDEPENDENT WITH ORAL CARE. POSITIONED SELF IN BED FOR COMFORT. VSS. HOB UP. C/L IN REACH. CONT POC.
--- NOTE | 2017-05-17 23:30 | NUR ---
REASSESSMENT COMPLETED. SEE FLOWSHEET FOR ALL FINDINGS. RESTING WITH NO DISTRESS. RESP UNLABORED. LUNG SOUNDS DIM. SPO2 98% ON RA. SR ON THE MONITOR. PULSES PALP X4. HEELS BRIDGED. UP TO BR AD [place] TO VOID. ABD SOFT. BSA X4. PASSING FLATUS. AFEBRILE. DENIES DISCOMFORT. TEDS/SCDS IN USE. AIR OVERLAY REMAINS FOR COMFORT. HOB UP. C/L IN REACH. CONT CURRENT POC.
[2017-05-18] VITALS (10 sets, daily range): BP systolic 99–122; BP diastolic 50–72
--- NOTE | 2017-05-18 01:10 | NUR ---
RESTING WITH EYES CLOSED. NO DISTRESS. NO NEEDS VOICED. VSS. HOB UP. C/L IN REACH. CONT CURRENT POC.
--- NOTE | 2017-05-18 03:19 | NUR ---
UP TO BR TO VOID. BACK TO BED NO DIFF. VSS. REASSESSMENT COMPLETED. SEE FLOWSHEET FOR ALL FINDINGS. NO SIG CHANGES. RESP UNLABORED. LUNGS DIM. SPO2 98% ON RA. GOOD EFFORT WITH INCENTIVE. SR ON THE MONITOR. AFEBRILE. HOB UP. C/L IN REACH. DENIES NEEDS. CONT POC.
--- NOTE | 2017-05-18 05:10 | NUR ---
RESTING WITH EYES CLOSED. NO DISTRESS. NO NEEDS VOICED. VSS. HOB UP. C/L IN REACH. CONT CURRENT POC.
[2017-05-18 06:07] LABS: HEMATOCRIT 32.2 % (36.0-48.0); HEMOGLOBIN 10.1 g/dL (12-16); MCH 22.5 pg (26.0-34.0); MCHC 31.4 g/dL (31.0-37.0); MCV 71.9 fL (80.0-100.0); MEAN PLATELET VOLUME 9.5 fL (7.4-10.4); RBC 4.48 10x6/uL (4.00-5.40); RDW 19.5 % (11.5-14.5); WBC 7.1 10x3/uL (4.8-10.8)
[2017-05-18 07:07] LABS: CALC OSMOLALITY 278 mosm/kg (275-300); CALCIUM 7.8 mg/dL (8.5-10.1); CHLORIDE - SERUM 105 mmol/L (98-107); CREATININE - SERUM 0.7 mg/dL (0.6-1.3); GLUCOSE 98 mg/dL (74-106); POTASSIUM - SERUM 3.9 mmol/L (3.5-5.1); SODIUM 139 mmol/L (136-145); UREA NITROGEN 15 mg/dL (7-18); eGFR NON AFRICAN AMERICAN > 90 mL/min (90-120)
--- NOTE | 2017-05-18 08:45 | NUR ---
PHYSICAL THERAPY AT BEDSIDE. PT AMBULATED AROUND ICU WITHOUT DIFFICULTY. PT UP AND BRUSHING TEETH IN ROOM. NO NEEDS AT THIS TIME.
--- NOTE | 2017-05-18 09:51 | NUR ---
Patient Name: EDMUND DAVIS Encounter No: [id number] : 1985 Primary Insurance: [employer]UE PPO Anticipated DC Date: 05-08-2017 Planned Disposition: Home DCP follow-up note: DC order rec'd. Met with patient - no needs identified or verbalized at this time Patient agreement with discharge plan. No changes to plan. Case management will follow and assist as needed. Donna Roe
[2017-05-18] MEDS ORDERED: BACTRIM DS TABL1 TAB PO (10:09)
[2017-05-18] MEDS ORDERED: BENZONATATE200 MG PO (10:10)
[2017-05-18] MEDS ORDERED: POTASSIUM20 MEQ/11 PO (10:10)
[2017-05-18] MEDS ORDERED: PERCOCET 5-3251 TAB PO (10:10)
[2017-05-18] MEDS ORDERED: ROBITUSSIN DM 110 ML PO (10:11)
[2017-05-18] MEDS ORDERED: PREDNISONE20 MG PO (10:12)
[2017-05-18] MEDS ORDERED: FLORAJEN3 CAPS460 MG PO (10:12)
[2017-05-18] MEDS ORDERED: ALBUTEROL2.5 MG/3 M UPD (10:14)
--- NOTE | 2017-05-18 12:39 | NUR ---
RIGHT DLSC D/C'D WITH CATH TIP INTACT. PT TOLERATED WELL. NO S/S OF DISTRESS NOTED. DISCUSSED DISCHARGE INSTRUCTIONS WITH PT. SHE VOICED UNDERSTANDING.
--- NOTE | 2017-05-18 13:03 | NUR ---
PT TAKEN BY WHEELCHAIR TO VEHICLE. NO S/S OF DISTRESS NOTED. ALL BELONGINGS IN HAND.
[2017-05-20 11:18] LABS: FUNGUS MYCOLOGY CULTURE Preliminary report (())
== END 2017-05-18 13:04 | disposition home or self-care (01) | DRG 197 ==
LOC: D.MS 13:21 → D.CVICU 13:21 → D.MS 05-01 11:28 → D.CVICU 05-13 09:35
PROVIDERS: Emergency Medicine; Family Medicine; Internal Medicine Cardiovascular Disease; Internal Medicine Hematology & Oncology; Internal Medicine Pulmonary Disease; Internal Medicine Rheumatology; Student in an Organized Health Care Education/Training Program; ADMIT Family Medicine
PROC: B54NZZA Ultrasonography of Left Upper Extremity Veins, Guidance (ICD-10-PCS; 2017-05-01)
PROC: 0BB78ZX Excision of Left Main Bronchus, Via Natural or Artificial Opening Endoscopic, Diagnostic (ICD-10-PCS; 2017-05-01)
PROC: 0BB38ZX Excision of Right Main Bronchus, Via Natural or Artificial Opening Endoscopic, Diagnostic (ICD-10-PCS; 2017-05-01)
PROC: 05HC33Z Insertion of Infusion Device into Left Basilic Vein, Percutaneous Approach (ICD-10-PCS; principal; 2017-05-04)
DX: J84.116 Cryptogenic organizing pneumonia (principal); E87.0 Hyperosmolality and hypernatremia; M25.60 Stiffness of unspecified joint, not elsewhere classified; R53.83 Other fatigue; M06.9 Rheumatoid arthritis, unspecified; D50.9 Iron deficiency anemia, unspecified; I95.9 Hypotension, unspecified; R09.02 Hypoxemia; D70.9 Neutropenia, unspecified; E87.6 Hypokalemia

== ENCOUNTER → 2017-06-03 09:23 | Outpatient (CLI) | payer BC ==
[2017-05-05 14:00] VITALS: BMI 21.6
[~2017-06-03 09:23] MED LIST: ALBUTEROL2.5 MG/3 M UPD; BACTRIM DS TABL1 TAB PO; BENZONATATE200 MG PO; FLORAJEN3 CAPS460 MG PO; LEVAQUIN500 MG PO; MUCINEX600 MG PO; PERCOCET 5-3251 TAB PO; POTASSIUM20 MEQ/11 PO; PREDNISONE20 MG PO; ROBITUSSIN DM 110 ML PO; VENTOLIN HFA18 GM INH
== END | disposition home or self-care (01) ==
LOC: D.RAD 09:00
DX: Z48.812 Encounter for surgical aftercare following surgery on the circulatory system (principal)

== ENCOUNTER → 2017-06-25 13:14 | Outpatient (CLI) | payer BC ==
[2017-05-05 14:00] VITALS: BMI 21.6
== END | disposition home or self-care (01) ==
LOC: D.RAD 08:00
DX: Z98.890 Other specified postprocedural states (principal)

== ENCOUNTER → 2017-09-04 08:35 | Outpatient (CLI) | payer BC ==
[2017-05-05 14:00] VITALS: BMI 21.6
== END | disposition home or self-care (01) ==
LOC: D.CT 08:35
DX: J18.9 Pneumonia, unspecified organism (principal)

== ENCOUNTER → 2018-05-06 15:36 | Outpatient (CLI) | payer BC ==
[2017-05-05 14:00] VITALS: BMI 21.6
== END | disposition home or self-care (01) ==
LOC: D.CT 15:36
DX: R06.02 Shortness of breath (principal)

== ENCOUNTER → 2018-06-09 13:41 | Outpatient (CLI) | payer BC ==
[2017-05-05 14:00] VITALS: BMI 21.6
== END | disposition home or self-care (01) ==
LOC: D.RT 06-07 10:00
DX: R06.02 Shortness of breath (principal)

== ENCOUNTER → 2018-08-11 10:30 | Outpatient (CLI) | payer BC ==
[2017-05-05 14:00] VITALS: BMI 21.6
== END | disposition home or self-care (01) ==
LOC: D.CT 10:30
DX: J84.9 Interstitial pulmonary disease, unspecified (principal)

== ENCOUNTER → 2018-09-28 08:49 | Outpatient (CLI) | payer BC ==
[2017-05-05 14:00] VITALS: BMI 21.6
== END ==
LOC: D.RT 08:00 → D.RAD 09:30
DX: J84.9 Interstitial pulmonary disease, unspecified (principal)

== ENCOUNTER → 2019-06-07 16:14 | Outpatient (CLI) | payer BC ==
[2017-05-05 14:00] VITALS: BMI 21.6
== END | disposition home or self-care (01) ==
LOC: D.RT 16:00 → D.CT 16:14
PROVIDERS: ATTEND Internal Medicine Pulmonary Disease
DX: J84.9 Interstitial pulmonary disease, unspecified (principal)

== ENCOUNTER → 2019-06-10 13:12 | Outpatient (CLI) | payer BC ==
[2017-05-05 14:00] VITALS: BMI 21.6
== END | disposition home or self-care (01) ==
LOC: D.RT 13:12
PROVIDERS: ATTEND Internal Medicine Pulmonary Disease
DX: J84.9 Interstitial pulmonary disease, unspecified (principal)

== ENCOUNTER → 2020-03-07 12:07 | Outpatient (CLI) | payer BC ==
[2017-05-05 14:00] VITALS: BMI 21.6
== END | disposition home or self-care (01) ==
LOC: D.LABREF 12:07
PROVIDERS: ATTEND Internal Medicine Pulmonary Disease
DX: Z11.59 Encounter for screening for other viral diseases (principal); J84.116 Cryptogenic organizing pneumonia

== ENCOUNTER → 2020-03-09 14:19 | Outpatient (CLI) | payer BC ==
[2017-05-05 14:00] VITALS: BMI 21.6
== END | disposition home or self-care (01) ==
LOC: D.RT 12-29 09:00 → D.CT 12-29 09:30 → D.RT 02-17 14:30 → D.CT 02-17 15:30 → D.RT 03-07 09:00 → D.CT 03-07 09:30 → D.RT 14:19
PROVIDERS: ATTEND Internal Medicine Pulmonary Disease
DX: J84.116 Cryptogenic organizing pneumonia (principal); J84.9 Interstitial pulmonary disease, unspecified

== ENCOUNTER → 2020-07-27 10:50 | Outpatient (CLI) | payer OTHER ==
[2017-05-05 14:00] VITALS: BMI 21.6
== END | disposition home or self-care (01) ==
LOC: D.CT 10:50
PROVIDERS: ATTEND Internal Medicine Pulmonary Disease
DX: J84.9 Interstitial pulmonary disease, unspecified (principal)